=== PATIENT | male | born 1985 | race Caucasian/White ===

== ENCOUNTER 2018-08-31 17:08 | Observation (INO) | payer MEDICAID ==
[~2018-08-31] VITALS: Ht 182.9 cm; Wt 96.0 kg
[2018-08-31 17:49] LABS: BASOPHILS # (AUTO) 0.04 x10^3/uL (0-0.1); BASOPHILS % (AUTO) 0 % (0-1); EOSINOPHILS # (AUTO) 0.03 x10^3/uL (0-0.4); EOSINOPHILS % (AUTO) 0 % (1-7); LYMPHOCYTES # (AUTO) 1.04 x10^3/uL (1-3.4); LYMPHOCYTES % (AUTO) 9 % (22-44); MD NO; MEAN CORPUSCULAR HEMOGLOBIN 33.9 pg (27.5-34.5); MEAN CORPUSCULAR HGB CONC 34.5 g/dL (33.2-36.2); MEAN CORPUSCULAR VOLUME 98.1 fL (81-97); MEAN PLATELET VOLUME 9.8 fL (7.4-10.4); MONOCYTES # (AUTO) 0.74 x10^3/uL (0.2-0.8); MONOCYTES % (AUTO) 7 % (2-9); NEUTROPHILS # (AUTO) 9.25 x10^3/uL (1.8-6.8); NEUTROPHILS % (AUTO) 83 % (42-75); PLATELET COUNT 177 x10^3/uL (130-400); RED BLOOD COUNT 5.39 x10^6/uL (4.38-5.82); RED CELL DISTRIBUTION WIDTH 16.2 % (9.4-14.8)
[2018-08-31] MEDS ORDERED: LORazepam 1MG TABLET ONE (17:56)
[2018-08-31] MEDS ORDERED: LORazepam 1MG TABLET PO ONE (18:00)
[2018-08-31 18:03] LABS: ALBUMIN 3.8 g/dL (3.4-5.0); ANION GAP 10 mmol/L (5-15); CALCIUM 9.2 mg/dL (8.5-10.1); CHLORIDE 102 mmol/L (98-107)
[2018-08-31 18:05] LABS: SALICYLATE LEVEL < 1.7 mg/dL (2.8-20.0)
[2018-08-31 18:06] LABS: ACETAMINOPHEN < 2 mcg/mL (10-30); ALANINE AMINOTRANSFERASE 82 U/L (12-78); ALKALINE PHOSPHATASE 109 U/L (45-117); BILIRUBIN,TOTAL 1.6 mg/dL (0.2-1.0); CREATININE 0.98 mg/dL (0.7-1.3); TOTAL PROTEIN 8.1 g/dL (6.4-8.2)
[2018-08-31 18:14] LABS: AMPHETAMINE SCREEN, URINE Negative (Negative); BARBITURATE SCREEN, URINE Negative (Negative); BENZODIAZEPINE SCREEN, URINE Negative (Negative); CANNABINOID SCREEN, URINE Negative (Negative); COCAINE SCREEN, URINE Negative (Negative); METHADONE SCREEN, URINE Negative (Negative); OPIATE SCREEN, URINE Negative (Negative)
[2018-08-31] MEDS ORDERED: LORazepam 1MG TABLET PO PRN ×4 (22:30)
[2018-08-31] MEDS ORDERED: GABAPENTIN 300 MG CAPSULE PO PRN (22:30)
[2018-08-31] MEDS ORDERED: DOCUSATE 100 MG CAPSULE PO PRN (22:30)
[2018-08-31] MEDS ORDERED: LORazepam 2 MG/ML, 1ML IM PRN (22:30)
[2018-08-31] MEDS ORDERED: POTASSIUM CHLORIDE 20 MEQ TAB.ER.PRT PO ONE (22:30)
[2018-08-31] MEDS ORDERED: NICOTINE 7 MG/24 HR PATCH.TD24 TD SCH (22:30)
[2018-08-31] MEDS ORDERED: LORazepam 0.5MG TABLET PO PRN (22:30)
[2018-09-01] MEDS ORDERED: ERGOCALCIFEROL 50,000 UNIT CAPSULE PO SCH (07:00)
[2018-09-01] MEDS: MULTIVITAMIN 1 TABLET PO SCH (07:36)
[2018-09-01 07:51] VITALS: BP 131/99
[2018-09-01] MEDS: LORazepam 1MG TABLET PO PRN ×3 (11:03→20:35)
[2018-09-01 19:56] VITALS: BP 133/93
[2018-09-01] MEDS: NICOTINE 7 MG/24 HR PATCH.TD24 TD SCH (20:34)
[2018-09-02 08:10] VITALS: BP 122/66
[2018-09-02] MEDS: MULTIVITAMIN 1 TABLET PO SCH (08:29)
[2018-09-02] MEDS: LORazepam 1MG TABLET PO PRN ×2 (11:32→18:50)
[2018-09-02 16:28] VITALS: BP 132/94
[2018-09-02 18:41] VITALS: BP 152/96
[2018-09-02 19:29] VITALS: BP 122/86
[2018-09-02] MEDS: NICOTINE 7 MG/24 HR PATCH.TD24 TD SCH (20:15)
[2018-09-03] MEDS: LORazepam 1MG TABLET PO PRN ×3 (01:34→14:37)
[2018-09-03] MEDS: TRAZODONE 50MG TABLET PO PRN (01:37)
[2018-09-03 07:50] VITALS: BP 123/86
[2018-09-03] MEDS: MULTIVITAMIN 1 TABLET PO SCH (07:54)
[2018-09-03 14:30] VITALS: BP 122/82
[2018-09-03 19:14] VITALS: BP 131/87
[2018-09-03] MEDS: NICOTINE 7 MG/24 HR PATCH.TD24 TD SCH (20:26)
[2018-09-04 07:46] VITALS: BP 129/81
[2018-09-04] MEDS: MULTIVITAMIN 1 TABLET PO SCH (08:25)
[2018-09-04] MEDS: LORazepam 1MG TABLET PO PRN (08:55)
[2018-09-04] MEDS: NICOTINE 7 MG/24 HR PATCH.TD24 TD SCH (20:22)
[2018-09-04 20:40] VITALS: BP 124/79
[2018-09-05 05:40] LABS: ALBUMIN 3.6 g/dL (3.4-5.0); ANION GAP 4 mmol/L (5-15); CALCIUM 8.8 mg/dL (8.5-10.1); CHLORIDE 105 mmol/L (98-107)
[2018-09-05 05:44] LABS: ALANINE AMINOTRANSFERASE 128 U/L (12-78); ALKALINE PHOSPHATASE 73 U/L (45-117); BILIRUBIN,TOTAL 0.7 mg/dL (0.2-1.0); CREATININE 0.84 mg/dL (0.7-1.3); TOTAL PROTEIN 7.5 g/dL (6.4-8.2)
[2018-09-05 07:43] VITALS: BP 120/79
[2018-09-05] MEDS: MULTIVITAMIN 1 TABLET PO SCH (10:02)
[2018-09-05 20:08] VITALS: BP 123/84
[2018-09-05] MEDS: NICOTINE 7 MG/24 HR PATCH.TD24 TD SCH (20:08)
[2018-09-06] MEDS: LORazepam 0.5MG TABLET PO PRN ×2 (00:34→08:35)
[2018-09-06] MEDS: MULTIVITAMIN 1 TABLET PO SCH (08:35)
[2018-09-06 08:36] VITALS: BP 120/65
[2018-09-06 20:20] VITALS: BP 106/78
[2018-09-06] MEDS: TRAZODONE 50MG TABLET PO PRN (20:52)
[2018-09-06] MEDS: NICOTINE 7 MG/24 HR PATCH.TD24 TD SCH (20:52)
[2018-09-07 07:55] VITALS: BP 123/87
[2018-09-07] MEDS: MULTIVITAMIN 1 TABLET PO SCH (08:59)
[2018-09-08] MEDS ORDERED: ERGO2000 PO (12:47)
== END 2018-09-07 19:10 ==
LOC: ED 19:20 → INTOOBSV 19:23 → EDIP 19:23 → 2N 22:40
PROVIDERS: ADMIT Internal Medicine; ATTEND Internal Medicine
DX: F10.239 Alcohol dependence with withdrawal, unspecified (principal); R45.851 Suicidal ideations; E87.6 Hypokalemia; D75.89 Other specified diseases of blood and blood-forming organs; E55.9 Vitamin D deficiency, unspecified; F17.210 Nicotine dependence, cigarettes, uncomplicated; F43.10 Post-traumatic stress disorder, unspecified; G47.00 Insomnia, unspecified; I10 Essential (primary) hypertension; F32.9 Major depressive disorder, single episode, unspecified; Z91.5 Personal history of self-harm; Z81.8 Family history of other mental and behavioral disorders
CPT/HCPCS: 36415; 80053; 80307; 80329; 82306; 82607; 84443; 85025; 99285; G0378; G0480

== ENCOUNTER 2019-11-05 13:21 | Inpatient (IN) | payer MEDICAID, OTHER ==
[~2019-11-05] VITALS: Ht 185.4 cm; Wt 108.5 kg
[~2019-11-05 13:21] MED LIST: ERGO2000 PO
[2019-11-05] MEDS ORDERED: SODIUM CHLORIDE FLUSH 10ML SYR IVF ONE ×2 (13:30→14:30)
[2019-11-05] MEDS ORDERED: LORazepam 2 MG/ML, 1ML IVPush ONE ×2 (13:30→14:30)
[2019-11-05] MEDS ORDERED: SODIUM CHLORIDE 0.9% 1,000ML IVBOLUS ONE ×3 (13:30→15:30)
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
[2019-11-05] MEDS ORDERED: LORazepam 2 MG/ML, 1ML ONE (14:03)
[2019-11-05] MEDS ORDERED: CHLORDIAZEPOXIDE 25 MG CAPSULE PO PRN ×2 (14:30→21:00)
[2019-11-05 14:34] LABS: BASOPHILS # (AUTO) 0.07 x10^3/uL (0-0.1); BASOPHILS % (AUTO) 1 % (0-1); EOSINOPHILS # (AUTO) 0.08 x10^3/uL (0-0.4); EOSINOPHILS % (AUTO) 1 % (1-7); LYMPHOCYTES # (AUTO) 1.14 x10^3/uL (1-3.4); LYMPHOCYTES % (AUTO) 12 % (22-44); MD NO; MEAN CORPUSCULAR HEMOGLOBIN 31.2 pg (27.5-34.5); MEAN CORPUSCULAR VOLUME 94.3 fL (81-97); MEAN PLATELET VOLUME 9.5 fL (7.4-10.4); MONOCYTES # (AUTO) 0.38 x10^3/uL (0.2-0.8); MONOCYTES % (AUTO) 4 % (2-9); NEUTROPHILS # (AUTO) 7.66 x10^3/uL (1.8-6.8); NEUTROPHILS % (AUTO) 82 % (42-75); PLATELET COUNT 207 x10^3/uL (130-400); RED BLOOD COUNT 6.14 x10^6/uL (4.38-5.82); RED CELL DISTRIBUTION WIDTH 17.5 % (9.4-14.8)
[2019-11-05 14:41] LABS: ALANINE AMINOTRANSFERASE 49 U/L (12-78); ALBUMIN 3.3 g/dL (3.4-5.0); ANION GAP 6 mmol/L (5-15); CALCIUM 8.2 mg/dL (8.5-10.1); CHLORIDE 115 mmol/L (98-107); SALICYLATE LEVEL 2.2 mg/dL (2.8-20.0)
[2019-11-05 14:43] LABS: ALKALINE PHOSPHATASE 82 U/L (45-117); BILIRUBIN,TOTAL 0.5 mg/dL (0.2-1.0); CREATININE 1.09 mg/dL (0.7-1.3); TOTAL PROTEIN 7.9 g/dL (6.4-8.2)
[2019-11-05] MEDS ORDERED: CHLORDIAZEPOXIDE 25 MG CAPSULE ONE (14:50)
--- NOTE | 2019-11-05 15:27 | NUR ---
PT MEDICATED WITH ORDERED MED FOR WITHDRAWL SYMPTOMS. PT GIVEN DHEATER HOSE TO HELP HIM WARM UP. HOSPITALIST IN ROOM AT THIS TIME. SITTER AT DOOR.
[2019-11-05] MEDS ORDERED: CHLORDIAZEPOXIDE 25 MG CAPSULE PO ONE (15:30)
[2019-11-05] MEDS ORDERED: morphine SULFATE 10 MG/ML, 1ML IVPush PRN (16:00)
[2019-11-05] MEDS ORDERED: LORazepam 0.5MG TABLET PO PRN (16:00)
[2019-11-05] MEDS ORDERED: ONDANSETRON 2MG/ML, 2ML IVPush PRN (16:00)
[2019-11-05] MEDS ORDERED: IBUPROFEN 600 MG TABLET PO PRN (16:00)
[2019-11-05] MEDS ORDERED: LORazepam 1MG TABLET PO PRN ×2 (16:00)
[2019-11-05] MEDS ORDERED: hydrALAzine 20 MG/ML, 1ML IVPush PRN (16:00)
[2019-11-05] MEDS ORDERED: THIAMINE 200 MG in DEXTROSE 5% 50 ML IVPB ONE (16:00)
[2019-11-05] MEDS ORDERED: BACLOFEN 10 MG TABLET PO PRN (16:00)
[2019-11-05] MEDS ORDERED: ONDANSETRON ODT 4 MG PO PRN (16:00)
[2019-11-05] MEDS ORDERED: LORazepam 2 MG/ML, 1ML IV PRN ×5 (16:00)
[2019-11-05] MEDS ORDERED: KETOROLAC 30 MG/1 ML IV PRN (16:00)
[2019-11-05] MEDS ORDERED: FOLIC ACID 5 MG/ML IM ONE (16:00)
--- NOTE | 2019-11-05 16:41 | NUR ---
2ND BAG OF ORDERED FLUIDS HUNG. PT RESTING CALMLY IN BED WITH EYES CLOSED. PT RESTING WITH FACE ON GURNEY. PT O2 SAT 87% ON RA. PT WAS PLACED ON O2 AT 2L PER N/C. PT O2 SAT IMPROVED TO 92% WHILE RESTING WIH EYES CLOSED.
--- NOTE | 2019-11-05 17:41 | NUR ---
PT RESTING CALMLY IN BED. NO STATED NEED AT THIS TIME, PT RESTING WITH EYES CLOSED. SITTER AT DOOR.
--- NOTE | 2019-11-05 18:07 | NUR ---
REPORT TO GEORGE ARANA.
[2019-11-05] MEDS: D5%-0.45NACL+KCL 20MEQ 1,000 ML IV SCH (20:13)
[2019-11-05] MEDS: ENOXAPARIN 40 MG/0.4 ML SQ SCH (20:15)
[2019-11-05 20:31] VITALS: BP 152/92
[2019-11-05 21:38] LABS: AMPHETAMINE SCREEN, URINE Negative (Negative); BARBITURATE SCREEN, URINE Negative (Negative); BENZODIAZEPINE SCREEN, URINE Positive (Negative); CANNABINOID SCREEN, URINE Negative (Negative); COCAINE SCREEN, URINE Negative (Negative); METHADONE SCREEN, URINE Negative (Negative); OPIATE SCREEN, URINE Negative (Negative)
[2019-11-06 03:28] VITALS: BP 138/98
[2019-11-06] MEDS: LORazepam 1MG TABLET PO PRN ×3 (03:45→21:23)
[2019-11-06] MEDS: D5%-0.45NACL+KCL 20MEQ 1,000 ML IV SCH (04:07)
[2019-11-06 06:08] LABS: BASOPHILS # (AUTO) 0.05 x10^3/uL (0-0.1); BASOPHILS % (AUTO) 1 % (0-1); EOSINOPHILS # (AUTO) 0.18 x10^3/uL (0-0.4); EOSINOPHILS % (AUTO) 2 % (1-7); LYMPHOCYTES # (AUTO) 1.33 x10^3/uL (1-3.4); LYMPHOCYTES % (AUTO) 16 % (22-44); MD NO; MEAN CORPUSCULAR HEMOGLOBIN 31.8 pg (27.5-34.5); MEAN CORPUSCULAR HGB CONC 33.7 g/dL (33.2-36.2); MEAN CORPUSCULAR VOLUME 94.6 fL (81-97); MEAN PLATELET VOLUME 9.6 fL (7.4-10.4); MONOCYTES # (AUTO) 0.69 x10^3/uL (0.2-0.8); MONOCYTES % (AUTO) 8 % (2-9); NEUTROPHILS # (AUTO) 6.31 x10^3/uL (1.8-6.8); NEUTROPHILS % (AUTO) 74 % (42-75); PLATELET COUNT 165 x10^3/uL (130-400); RED CELL DISTRIBUTION WIDTH 17.2 % (9.4-14.8)
[2019-11-06 06:16] LABS: ALBUMIN 3.1 g/dL (3.4-5.0); ANION GAP 6 mmol/L (5-15); CALCIUM 8.3 mg/dL (8.5-10.1); CHLORIDE 111 mmol/L (98-107)
[2019-11-06 06:24] LABS: ALANINE AMINOTRANSFERASE 37 U/L (12-78); ALKALINE PHOSPHATASE 65 U/L (45-117); BILIRUBIN,TOTAL 1.3 mg/dL (0.2-1.0); CREATININE 0.84 mg/dL (0.7-1.3); TOTAL PROTEIN 6.6 g/dL (6.4-8.2)
[2019-11-06 07:12] VITALS: BP 143/99
[2019-11-06] MEDS ORDERED: MAGNESIUM SULFATE PMX 2GM/50ML 50 ML IV ONE (08:00)
[2019-11-06] MEDS: MULTIVITAMINS/MINERALS TABLET PO SCH (08:32)
[2019-11-06] MEDS: NEUTRA PHOS K 250 MG TABLET PO SCH ×3 (08:32→21:23)
[2019-11-06] MEDS: POTASSIUM CHLORIDE 20 MEQ, MAGNESIUM SULFATE 1 GM, FOLIC ACID 1 MG, THIAMINE 200 MG, MV... IV SCH (11:49)
[2019-11-06 13:02] VITALS: BP 126/87
[2019-11-06 18:43] VITALS: BP 119/80
[2019-11-06] MEDS: ENOXAPARIN 40 MG/0.4 ML SQ SCH (21:23)
[2019-11-07 02:33] VITALS: BP 129/85
[2019-11-07 06:02] LABS: ALBUMIN 3.1 g/dL (3.4-5.0); ANION GAP 5 mmol/L (5-15); CALCIUM 8.4 mg/dL (8.5-10.1); CHLORIDE 110 mmol/L (98-107)
[2019-11-07 06:03] LABS: BASOPHILS # (AUTO) 0.02 x10^3/uL (0-0.1); BASOPHILS % (AUTO) 0 % (0-1); EOSINOPHILS # (AUTO) 0.24 x10^3/uL (0-0.4); EOSINOPHILS % (AUTO) 4 % (1-7); LYMPHOCYTES # (AUTO) 1.38 x10^3/uL (1-3.4); LYMPHOCYTES % (AUTO) 21 % (22-44); MD NO; MEAN CORPUSCULAR HEMOGLOBIN 31.6 pg (27.5-34.5); MEAN CORPUSCULAR HGB CONC 33.6 g/dL (33.2-36.2); MEAN CORPUSCULAR VOLUME 94.1 fL (81-97); MONOCYTES % (AUTO) 10 % (2-9); NEUTROPHILS # (AUTO) 4.38 x10^3/uL (1.8-6.8); NEUTROPHILS % (AUTO) 65 % (42-75); PLATELET COUNT 169 x10^3/uL (130-400); RED BLOOD COUNT 5.29 x10^6/uL (4.38-5.82); RED CELL DISTRIBUTION WIDTH 16.8 % (9.4-14.8)
[2019-11-07 06:07] LABS: ALANINE AMINOTRANSFERASE 28 U/L (12-78); ALKALINE PHOSPHATASE 76 U/L (45-117); BILIRUBIN,TOTAL 1.4 mg/dL (0.2-1.0); CREATININE 0.81 mg/dL (0.7-1.3); TOTAL PROTEIN 6.7 g/dL (6.4-8.2)
[2019-11-07 07:19] VITALS: BP 151/70
[2019-11-07] MEDS: NEUTRA PHOS K 250 MG TABLET PO SCH ×3 (09:24→20:56)
[2019-11-07] MEDS: MULTIVITAMINS/MINERALS TABLET PO SCH (09:24)
[2019-11-07] MEDS: POTASSIUM CHLORIDE 20 MEQ, MAGNESIUM SULFATE 1 GM, FOLIC ACID 1 MG, THIAMINE 200 MG, MV... IV SCH (10:34)
[2019-11-07] MEDS: LORazepam 1MG TABLET PO PRN (10:35)
[2019-11-07 12:08] VITALS: BP 138/82
[2019-11-07 18:27] VITALS: BP 130/84
[2019-11-07] MEDS: ENOXAPARIN 40 MG/0.4 ML SQ SCH (20:56)
[2019-11-08 00:55] VITALS: BP 132/91
[2019-11-08 06:07] LABS: ALANINE AMINOTRANSFERASE 32 U/L (12-78); ALBUMIN 3.1 g/dL (3.4-5.0); ANION GAP 5 mmol/L (5-15); CALCIUM 8.4 mg/dL (8.5-10.1); CHLORIDE 109 mmol/L (98-107); CREATININE 0.82 mg/dL (0.7-1.3)
[2019-11-08 06:10] LABS: ALKALINE PHOSPHATASE 71 U/L (45-117); BILIRUBIN,TOTAL 1.6 mg/dL (0.2-1.0); TOTAL PROTEIN 6.7 g/dL (6.4-8.2)
[2019-11-08] MEDS ORDERED: POTASSIUM CHLORIDE 10% 40 MEQ/30 ML UDC PO ONE (09:00)
[2019-11-08] MEDS: NEUTRA PHOS K 250 MG TABLET PO SCH ×3 (09:46→21:20)
[2019-11-08] MEDS: MULTIVITAMINS/MINERALS TABLET PO SCH (09:46)
[2019-11-08 10:26] VITALS: BP 138/86
[2019-11-08] MEDS: POTASSIUM CHLORIDE 20 MEQ, MAGNESIUM SULFATE 1 GM, FOLIC ACID 1 MG, THIAMINE 200 MG, MV... IV SCH (11:01)
[2019-11-08 19:12] VITALS: BP 150/103
[2019-11-08] MEDS: ENOXAPARIN 40 MG/0.4 ML SQ SCH (21:20)
[2019-11-08 21:24] VITALS: BP 146/101
[2019-11-08 21:58] VITALS: BP 148/95
[2019-11-09 00:56] VITALS: BP 147/88
[2019-11-09] MEDS: ACETAMINOPHEN 325 MG TABLET PO PRN ×2 (01:37→08:32)
[2019-11-09 06:55] VITALS: BP 129/88
[2019-11-09 07:19] LABS: ALBUMIN 3.3 g/dL (3.4-5.0); ANION GAP 4 mmol/L (5-15); CALCIUM 8.9 mg/dL (8.5-10.1); CHLORIDE 111 mmol/L (98-107)
[2019-11-09 07:23] LABS: ALANINE AMINOTRANSFERASE 50 U/L (12-78); ALKALINE PHOSPHATASE 75 U/L (45-117); BILIRUBIN,TOTAL 1.1 mg/dL (0.2-1.0); CREATININE 0.81 mg/dL (0.7-1.3); TOTAL PROTEIN 7.2 g/dL (6.4-8.2)
[2019-11-09] MEDS: NEUTRA PHOS K 250 MG TABLET PO SCH ×3 (08:28→20:47)
[2019-11-09] MEDS: MULTIVITAMINS/MINERALS TABLET PO SCH (08:28)
[2019-11-09] MEDS ORDERED: PHOS250T3 PO (10:55)
[2019-11-09] MEDS ORDERED: MULT-484 PO (10:55)
[2019-11-09] MEDS ORDERED: MAGN400T26 PO (10:56)
[2019-11-09] MEDS: POTASSIUM CHLORIDE 20 MEQ, MAGNESIUM SULFATE 1 GM, FOLIC ACID 1 MG, THIAMINE 200 MG, MV... IV SCH (12:38)
[2019-11-09 13:42] VITALS: BP 131/90
[2019-11-09 18:38] VITALS: BP 138/95
[2019-11-09] MEDS: ENOXAPARIN 40 MG/0.4 ML SQ SCH (20:48)
[2019-11-10 02:05] VITALS: BP 125/88
[2019-11-10 08:10] VITALS: BP 135/91
[2019-11-10] MEDS: NEUTRA PHOS K 250 MG TABLET PO SCH (09:01)
[2019-11-10] MEDS: MULTIVITAMINS/MINERALS TABLET PO SCH (09:01)
[2019-11-10] MEDS: POTASSIUM CHLORIDE 20 MEQ, MAGNESIUM SULFATE 1 GM, FOLIC ACID 1 MG, THIAMINE 200 MG, MV... IV SCH (13:14)
[2019-11-10 13:40] VITALS: BP 125/80
[2019-11-10 20:00] VITALS: BP 136/92
[2019-11-10] MEDS: ENOXAPARIN 40 MG/0.4 ML SQ SCH (21:15)
[2019-11-11 01:35] VITALS: BP 120/80
[2019-11-11 07:50] VITALS: BP 110/75
[2019-11-11] MEDS: MULTIVITAMINS/MINERALS TABLET PO SCH (09:03)
[2019-11-11 12:16] VITALS: BP 123/86
[2019-11-11] MEDS ORDERED: TRAZODONE 50MG TABLET PO PRN (17:30)
[2019-11-11 19:39] VITALS: BP 113/77
[2019-11-11] MEDS: ENOXAPARIN 40 MG/0.4 ML SQ SCH (21:29)
[2019-11-12 00:41] VITALS: BP 129/89
[2019-11-12 06:59] VITALS: BP 109/72
[2019-11-12] MEDS: SERTRALINE 50MG TABLET PO SCH (08:38)
[2019-11-12] MEDS: MULTIVITAMINS/MINERALS TABLET PO SCH (08:38)
[2019-11-12 13:08] VITALS: BP 115/79
[2019-11-12] MEDS: ENOXAPARIN 40 MG/0.4 ML SQ SCH (20:16)
[2019-11-12 21:00] VITALS: BP 119/77
[2019-11-13 00:52] VITALS: BP 123/81
[2019-11-13 07:59] VITALS: BP 111/77
[2019-11-13] MEDS: MULTIVITAMINS/MINERALS TABLET PO SCH (08:30)
[2019-11-13] MEDS: SERTRALINE 50MG TABLET PO SCH (08:30)
[2019-11-13 12:06] VITALS: BP 118/78
[2019-11-13 18:43] VITALS: BP 133/88
[2019-11-13] MEDS: ENOXAPARIN 40 MG/0.4 ML SQ SCH (20:16)
[2019-11-14 00:30] VITALS: BP 116/81
[2019-11-14 08:20] VITALS: BP 115/78
[2019-11-14] MEDS: SERTRALINE 50MG TABLET PO SCH (09:55)
[2019-11-14] MEDS: MULTIVITAMINS/MINERALS TABLET PO SCH (09:55)
[2019-11-14 12:44] VITALS: BP 126/76
[2019-11-14 19:33] VITALS: BP 111/79
[2019-11-14] MEDS: ENOXAPARIN 40 MG/0.4 ML SQ SCH (20:16)
[2019-11-15 01:52] VITALS: BP 107/71
[2019-11-15 09:55] VITALS: BP 117/71
[2019-11-15] MEDS: MULTIVITAMINS/MINERALS TABLET PO SCH (10:04)
[2019-11-15] MEDS: SERTRALINE 50MG TABLET PO SCH (10:04)
[2019-11-15 13:20] VITALS: BP 130/84
[2019-11-15 20:22] VITALS: BP 132/90
[2019-11-15] MEDS: ENOXAPARIN 40 MG/0.4 ML SQ SCH (20:31)
[2019-11-16 03:00] VITALS: BP 118/81
[2019-11-16] MEDS: SERTRALINE 50MG TABLET PO SCH (08:19)
[2019-11-16] MEDS: MULTIVITAMINS/MINERALS TABLET PO SCH (08:19)
[2019-11-16 09:02] VITALS: BP 126/87
[2019-11-16 13:37] VITALS: BP 122/85
[2019-11-16] MEDS ORDERED: NICOTINE 14MG/24 HR PATCH.TD24 TD SCH (14:00)
[2019-11-16] MEDS ORDERED: SERT50TA PO (16:11)
== END 2019-11-16 16:45 | disposition home or self-care (01) | DRG 885 ==
LOC: ED 13:22 → EDIP 15:31 → 4WST 18:11 → 3N 11-12 17:57
PROVIDERS: ADMIT Hospitalist; ATTEND Internal Medicine
DX: F33.2 Major depressive disorder, recurrent severe without psychotic features (principal); F10.24 Alcohol dependence with alcohol-induced mood disorder; R45.851 Suicidal ideations; F10.230 Alcohol dependence with withdrawal, uncomplicated; J45.909 Unspecified asthma, uncomplicated; E87.6 Hypokalemia; E86.0 Dehydration; E83.42 Hypomagnesemia; E83.39 Other disorders of phosphorus metabolism; D75.1 Secondary polycythemia; I10 Essential (primary) hypertension; F17.210 Nicotine dependence, cigarettes, uncomplicated; R00.0 Tachycardia, unspecified; K70.9 Alcoholic liver disease, unspecified; Z79.899 Other long term (current) drug therapy; Z91.5 Personal history of self-harm
CPT/HCPCS: 36415; 96361; 96372; 96374; 99285; J7042; 80053; 80307; 83735; 84100; 85025; 93005; G0378; J1650; J3411; J3475; J3480; J0360; J2060; J7030

== ENCOUNTER 2019-11-16 14:50 | Inpatient (IN) | payer MEDICAID ==
[~2019-11-16] VITALS: Ht 185.4 cm; Wt 103.4 kg
[~2019-11-16 14:50] MED LIST changes: +MAGN400T26 PO; +MULT-484 PO; +PHOS250T3 PO
[2019-11-16] MEDS ORDERED: ONDANSETRON ODT 4 MG PO PRN (15:00)
[2019-11-16] MEDS ORDERED: ACETAMINOPHEN 325 MG TABLET PO PRN (15:00)
[2019-11-16] MEDS ORDERED: DOCUSATE 100 MG CAPSULE PO PRN (15:00)
[2019-11-16] MEDS ORDERED: POLYETHYLENE GLYCOL 17 GM PACKET PO PRN (15:00)
[2019-11-16] MEDS ORDERED: BISACODYL 10 MG SUPP PR PRN (15:00)
[2019-11-16] MEDS ORDERED: TRAZODONE 50MG TABLET PO PRN (15:30)
[2019-11-16] MEDS ORDERED: PLEASE ENTER HEIGHT AND WEIGHT MC SCH (16:00)
[2019-11-16] MEDS ORDERED: SERT50TA PO (16:11)
[2019-11-16 16:13] VITALS: BP 137/90
[2019-11-16] MEDS ORDERED: FLU VACC QS2019-20 36MOS UP/PF 0.5 ML IM-VACC ONE (17:30)
[2019-11-16 19:45] VITALS: BP 129/85
[2019-11-17 05:44] LABS: CHOL/HDL RATIO 4.4; LDL/HDL RATIO 2.7 (0.5-3.0)
[2019-11-17 07:19] VITALS: BP 115/80
[2019-11-17] MEDS ORDERED: SERTRALINE 100MG TABLET ONE (08:41)
[2019-11-17] MEDS ORDERED: THIAMINE 100MG TABLET PO SCH (09:00)
[2019-11-17] MEDS ORDERED: NICOTINE 14MG/24 HR PATCH.TD24 TD SCH (09:00)
[2019-11-17] MEDS ORDERED: MULTIVITAMIN 1 TABLET PO SCH (09:00)
[2019-11-17] MEDS ORDERED: SERTRALINE 50MG TABLET PO SCH (09:00)
[2019-11-17] MEDS ORDERED: FOLIC ACID 1 MG TABLET PO SCH (09:00)
[2019-11-17] MEDS: ACAMPROSATE 333 MG TABLET.DR PO SCH ×3 (12:57→20:31)
[2019-11-17] MEDS ORDERED: ACAMPROSATE 333 MG TABLET.DR ONE (16:38)
[2019-11-17 19:11] VITALS: BP 129/79
[2019-11-17 19:21] VITALS: BP 115/75
[2019-11-18 07:37] VITALS: BP 101/65
[2019-11-18] MEDS: FOLIC ACID 1 MG TABLET PO SCH (08:58)
[2019-11-18] MEDS: NICOTINE 14MG/24 HR PATCH.TD24 TD SCH (08:58)
[2019-11-18] MEDS: ACAMPROSATE 333 MG TABLET.DR PO SCH ×3 (08:58→21:18)
[2019-11-18] MEDS: MULTIVITAMIN 1 TABLET PO SCH (08:58)
[2019-11-18] MEDS: THIAMINE 100MG TABLET PO SCH (08:58)
[2019-11-18] MEDS: SERTRALINE 50MG TABLET PO SCH (08:58)
[2019-11-18 19:36] VITALS: BP 138/84
[2019-11-19 07:21] VITALS: BP 116/73
[2019-11-19] MEDS: SERTRALINE 50MG TABLET PO SCH (08:31)
[2019-11-19] MEDS: FOLIC ACID 1 MG TABLET PO SCH (08:31)
[2019-11-19] MEDS: NICOTINE 14MG/24 HR PATCH.TD24 TD SCH (08:31)
[2019-11-19] MEDS: ACAMPROSATE 333 MG TABLET.DR PO SCH ×3 (08:31→20:22)
[2019-11-19] MEDS: MULTIVITAMIN 1 TABLET PO SCH (08:31)
[2019-11-19] MEDS: THIAMINE 100MG TABLET PO SCH (08:31)
[2019-11-19 19:52] VITALS: BP 150/87
[2019-11-20 07:31] VITALS: BP 112/75
[2019-11-20] MEDS: MULTIVITAMIN 1 TABLET PO SCH (08:23)
[2019-11-20] MEDS: ACAMPROSATE 333 MG TABLET.DR PO SCH ×3 (08:23→20:38)
[2019-11-20] MEDS: NICOTINE 14MG/24 HR PATCH.TD24 TD SCH (08:23)
[2019-11-20] MEDS: SERTRALINE 50MG TABLET PO SCH (08:23)
[2019-11-20] MEDS: THIAMINE 100MG TABLET PO SCH (08:23)
[2019-11-20] MEDS: FOLIC ACID 1 MG TABLET PO SCH (08:23)
[2019-11-20] MEDS ORDERED: ACETAMINOPHEN 325 MG TABLET ONE (16:03)
[2019-11-20] MEDS ORDERED: MULT1TAB60 PO (16:04)
[2019-11-20] MEDS ORDERED: NICO-486 TD (16:04)
[2019-11-20] MEDS ORDERED: SERT50TA28 PO (16:04)
[2019-11-20] MEDS ORDERED: ACAM333T7 PO (16:04)
[2019-11-20] MEDS ORDERED: ACETAMINOPHEN 325 MG TABLET PO PRN (16:30)
[2019-11-20 19:15] VITALS: BP_SYST 142; BP_SYST 98; BP_DIAS 59; BP_DIAS 83
[2019-11-21 07:38] VITALS: BP 120/81
[2019-11-21 07:48] VITALS: BP 129/88
[2019-11-21] MEDS: MULTIVITAMIN 1 TABLET PO SCH (08:52)
[2019-11-21] MEDS: FOLIC ACID 1 MG TABLET PO SCH (08:52)
[2019-11-21] MEDS: SERTRALINE 50MG TABLET PO SCH (08:52)
[2019-11-21] MEDS: THIAMINE 100MG TABLET PO SCH (08:52)
[2019-11-21] MEDS: ACAMPROSATE 333 MG TABLET.DR PO SCH (08:53)
[2019-11-21] MEDS: NICOTINE 14MG/24 HR PATCH.TD24 TD SCH (08:53)
== END 2019-11-21 10:08 | disposition home or self-care (01) | DRG 885 ==
LOC: 3E 15:36 → UNDODISIN 15:40
PROVIDERS: ADMIT Psychiatry & Neurology Psychosomatic Medicine; ATTEND Psychiatry & Neurology Psychosomatic Medicine
DX: F33.2 Major depressive disorder, recurrent severe without psychotic features (principal); R45.851 Suicidal ideations; E87.6 Hypokalemia; F10.229 Alcohol dependence with intoxication, unspecified; I10 Essential (primary) hypertension; Z72.0 Tobacco use; Z79.899 Other long term (current) drug therapy; Z91.5 Personal history of self-harm
CPT/HCPCS: 36415; 71045; 80061; 90686

== ENCOUNTER 2020-02-25 04:23 | Emergency (ER) | payer MEDICAID ==
[~2020-02-25] VITALS: Ht 185.4 cm; Wt 113.5 kg
[~2020-02-25 04:23] MED LIST changes: +ACAM333T7 PO; +MULT1TAB60 PO; +NICO-486 TD; +SERT50TA PO; +SERT50TA28 PO
[2020-02-25] MEDS ORDERED: LORazepam 1MG TABLET PO ONE (04:30)
[2020-02-25] MEDS ORDERED: NICOTINE 14MG/24 HR PATCH.TD24 TD ONE (04:30)
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
[2020-02-25] MEDS ORDERED: NICOTINE 21 MG/24 HR PATCH.TD24 ONE (04:39)
[2020-02-25] MEDS ORDERED: LORazepam 1MG TABLET ONE (04:39)
[2020-02-25] MEDS ORDERED: NICOTINE 14MG/24 HR PATCH.TD24 ONE (04:42)
[2020-02-25 05:11] LABS: AMPHETAMINE SCREEN, URINE Negative (Negative); BARBITURATE SCREEN, URINE Negative (Negative); BENZODIAZEPINE SCREEN, URINE Negative (Negative); CANNABINOID SCREEN, URINE Negative (Negative); COCAINE SCREEN, URINE Negative (Negative); METHADONE SCREEN, URINE Negative (Negative); OPIATE SCREEN, URINE Negative (Negative)
[2020-02-25 05:15] LABS: BASOPHILS # (AUTO) 0.08 x10^3/uL (0-0.1); BASOPHILS % (AUTO) 1 % (0-1); EOSINOPHILS # (AUTO) 0.05 x10^3/uL (0-0.4); EOSINOPHILS % (AUTO) 1 % (1-7); LYMPHOCYTES # (AUTO) 2.59 x10^3/uL (1-3.4); LYMPHOCYTES % (AUTO) 27 % (22-44); MD NO; MEAN CORPUSCULAR HEMOGLOBIN 31.7 pg (27.5-34.5); MEAN CORPUSCULAR HGB CONC 33.2 g/dL (33.2-36.2); MEAN CORPUSCULAR VOLUME 95.4 fL (81-97); MEAN PLATELET VOLUME 9.4 fL (7.4-10.4); MONOCYTES # (AUTO) 0.33 x10^3/uL (0.2-0.8); MONOCYTES % (AUTO) 4 % (2-9); NEUTROPHILS # (AUTO) 6.44 x10^3/uL (1.8-6.8); NEUTROPHILS % (AUTO) 68 % (42-75); PLATELET COUNT 243 x10^3/uL (130-400); RED BLOOD COUNT 6.23 x10^6/uL (4.38-5.82); RED CELL DISTRIBUTION WIDTH 13.8 % (9.4-14.8)
[2020-02-25 05:28] LABS: ALBUMIN 3.9 g/dL (3.4-5.0); ANION GAP 10 mmol/L (5-15); CALCIUM 8.8 mg/dL (8.5-10.1); CHLORIDE 106 mmol/L (98-107); SALICYLATE LEVEL 1.8 mg/dL (2.8-20.0)
[2020-02-25 05:41] LABS: ALANINE AMINOTRANSFERASE 30 U/L (12-78); ALKALINE PHOSPHATASE 95 U/L (45-117); BILIRUBIN,TOTAL 0.7 mg/dL (0.2-1.0); CREATININE 1.34 mg/dL (0.7-1.3); TOTAL PROTEIN 8.6 g/dL (6.4-8.2)
--- NOTE | 2020-02-25 06:33 | NUR ---
PT REQUESTING PANTS. INSTRUCTED THAT WE DO NOT HAVE PAPER SCRUBS. INSTRUCTED PATIENT TO PUT HIS GOWN BACK ON. PT. COOPERATIVE.
--- NOTE | 2020-02-25 07:11 | NUR ---
REPORT GIVEN TO ROGERS ARANA.
--- NOTE | 2020-02-25 07:51 | NUR ---
REPORT RECEIVED FROM YASMEEN STAUFFER. PT LAYING IN BED, RESPIRATIONS EVEN AND UNLABORED, IN VIEW OF THE SITTER. WILL CONTINUE TO MONITOR.
--- NOTE | 2020-02-25 08:34 | NUR ---
TASK RN NOTE: PT ASLEEP IN BED, NAD NOTE AT THIS TIME. SITTER OUTSIDE OF ROOM FOR DIRECT OBSERVATION AND Q15 MIN SAFETY CHECKS.
--- NOTE | 2020-02-25 08:55 | NUR ---
PT AMBULATORY TO BATHROOM X2, REMAINS IN VIEW OF THE SITTER, NO SIGNS OF DISTRESS. WILL CONTINUE TO MONITOR.
--- NOTE | 2020-02-25 09:39 | NUR ---
PT PROVIDED WATER, STATED "I KNOW I'M DEHYDRATED, ALL I'VE BEEN DRINKING IS LIQUOR." NO SIGNS OF DISTRESS, REMAINS IN VIEW OF THE SITTER.
--- NOTE | 2020-02-25 10:36 | NUR ---
PT LAYING ON SIDE, RESPIRATIONS EVEN AND UNLABORED, EYE CLOSED, LIGHTS OFF TO PROMOTE REST.
--- NOTE | 2020-02-25 10:59 | NUR ---
PT LAYING ON SIGN, STATING HE FEELS HE'S GOING TO BE SICK. BARF BAG AT BEDSIDE. REMAINS IN VIEW OF THE SITTER.
[2020-02-25] MEDS ORDERED: LORazepam 2 MG/ML, 1ML ONE (11:13)
[2020-02-25] MEDS: LORazepam 2 MG/ML, 1ML IVPush PRN ×2 (11:15→12:53)
[2020-02-25 11:25] LABS: BASOPHILS # (AUTO) 0.03 x10^3/uL (0-0.1); BASOPHILS % (AUTO) 0 % (0-1); EOSINOPHILS # (AUTO) 0.08 x10^3/uL (0-0.4); EOSINOPHILS % (AUTO) 1 % (1-7); LYMPHOCYTES # (AUTO) 2.28 x10^3/uL (1-3.4); LYMPHOCYTES % (AUTO) 26 % (22-44); MD NO; MEAN CORPUSCULAR HEMOGLOBIN 31.6 pg (27.5-34.5); MEAN CORPUSCULAR HGB CONC 33.6 g/dL (33.2-36.2); MEAN CORPUSCULAR VOLUME 94.1 fL (81-97); MEAN PLATELET VOLUME 10.1 fL (7.4-10.4); MONOCYTES # (AUTO) 0.48 x10^3/uL (0.2-0.8); MONOCYTES % (AUTO) 5 % (2-9); NEUTROPHILS # (AUTO) 6.07 x10^3/uL (1.8-6.8); NEUTROPHILS % (AUTO) 68 % (42-75); PLATELET COUNT 240 x10^3/uL (130-400); RED BLOOD COUNT 5.73 x10^6/uL (4.38-5.82); RED CELL DISTRIBUTION WIDTH 14.2 % (9.4-14.8)
[2020-02-25] MEDS ORDERED: SODIUM CHLORIDE 0.9% 1,000ML IVBOLUS ONE (11:30)
[2020-02-25] MEDS ORDERED: SODIUM CHLORIDE FLUSH 10ML SYR IVF ONE (11:30)
[2020-02-25 11:40] LABS: ANION GAP 14 mmol/L (5-15); CALCIUM 8.4 mg/dL (8.5-10.1); CHLORIDE 105 mmol/L (98-107); CREATININE 1.01 mg/dL (0.7-1.3)
--- NOTE | 2020-02-25 11:40 | NUR ---
PT SITTING IN BED, AFTER AMBULATING TO THE BATHROOM, PT STATES HE THREW UP, PROVIDED SPRITE AND WATER. REMAINS IN VIEW OF SITTER.
[2020-02-25 11:41] LABS: ALBUMIN 3.4 g/dL (3.4-5.0)
[2020-02-25 11:46] LABS: TROPONIN I < 0.015 ng/mL (0.000-0.045)
--- NOTE | 2020-02-25 12:14 | NUR ---
ASSIST RN:: PT NOW BELOW LEGAL LIMIT ON BREATHYLIZER. PT STATING HE "FEELS LIKE SHIT, HE WANTS TO END HIS LIFE DUE TO BEING AN ALCOHOLIC". PSYCH BIOINFORMATICS TECHNICIAN COMING TO SEE PT.
--- NOTE | 2020-02-25 12:17 | NUR ---
PT LAYING IN BED, NO SIGNS OF DISTRESS, REMAINS IN VIEW OF SITTER.
--- NOTE | 2020-02-25 12:34 | NUR ---
LUBE ATTENDANT TO BEDSIDE.
--- NOTE | 2020-02-25 12:36 | NUR ---
PT TO BE PLACED ON LEGAL 2000 PER BANKRUPTCY LAW SPECIALIST.
[2020-02-25] MEDS ORDERED: LISI-167 PO (13:00)
--- NOTE | 2020-02-25 13:50 | NUR ---
PT LAYING IN BED, VSS, RESPIRATIONS EVEN AND UNLABORED, REMAINS IN SIGHT OF SITTER.
--- NOTE | 2020-02-25 14:26 | NUR ---
PT LAYING ON SIDE, RESPIRATIONS EVEN AND UNLABORED, PT REMAINS IN VIEW OF THE SITTER.
[2020-02-25 15:46] VITALS: BP 121/84
--- NOTE | 2020-02-25 15:47 | NUR ---
PT REMAINS LAYING IN BED, RESPIRATIONS EVEN AND UNLABORED, EYES CLOSED, EASILY AWOKEN WHEN YOU SAY HIS NAME. PT DENIES COMPLAINTS, PT STATES HE'S COLD, EVIDENCE OF SWEATING ON BED.
--- NOTE | 2020-02-25 15:50 | NUR ---
REPORT TO YASMEEN Humphrey.
--- NOTE | 2020-02-25 15:58 | NUR ---
PT AMBULATORY TO BATHROOM. STEADY GAIT.
[2020-02-26] MEDS ORDERED: THIAMINE 100MG TABLET PO ONE (10:30)
[2020-02-27] MEDS ORDERED: MULTIVITAMIN 1 TABLET PO SCH (09:00)
[2020-02-27] MEDS ORDERED: LISINOPRIL 10 MG TABLET PO SCH (09:00)
[2020-02-27] MEDS ORDERED: FOLIC ACID 1 MG TABLET PO SCH (09:00)
[2020-02-27] MEDS ORDERED: MAGNESIUM OXIDE 400 MG TABLET PO SCH (09:00)
== END 2020-02-25 16:23 ==
LOC: ED 04:45
DX: F19.14 Other psychoactive substance abuse with psychoactive substance-induced mood disorder (principal); F10.129 Alcohol abuse with intoxication, unspecified; R45.851 Suicidal ideations; I10 Essential (primary) hypertension; Y90.9 Presence of alcohol in blood, level not specified
CPT/HCPCS: 36415; 80048; 80053; 80307; 82040; 84484; 85025; 96374; 96376; 99285; J2060; J7030

== ENCOUNTER 2020-02-25 14:26 | Inpatient (IN) | payer MEDICAID ==
[~2020-02-25] VITALS: Ht 185.4 cm; Wt 106.5 kg
[~2020-02-25 14:26] MED LIST changes: +LISI-167 PO
[2020-02-25] MEDS ORDERED: POLYETHYLENE GLYCOL 17 GM PACKET PO PRN (16:00)
[2020-02-25] MEDS ORDERED: DOCUSATE 100 MG CAPSULE PO PRN (16:00)
[2020-02-25] MEDS ORDERED: ACETAMINOPHEN 325 MG TABLET PO PRN (16:00)
[2020-02-25 16:32] VITALS: BP 124/94
[2020-02-25 17:17] VITALS: BP 124/94
[2020-02-25 19:15] VITALS: BP 128/88
[2020-02-25] MEDS: LORazepam 1MG TABLET PO SCH (20:50)
[2020-02-25] MEDS: NICOTINE 14MG/24 HR PATCH.TD24 TD SCH (20:50)
[2020-02-26] MEDS: LORazepam 1MG TABLET PO SCH ×4 (03:00→20:47)
[2020-02-26 06:48] LABS: CHOL/HDL RATIO 4.3; LDL/HDL RATIO 2.7 (0.5-3.0)
[2020-02-26 07:35] VITALS: BP 124/75
[2020-02-26] MEDS: LISINOPRIL 10 MG TABLET PO SCH (08:42)
[2020-02-26] MEDS: MULTIVITAMIN 1 TABLET PO SCH (08:42)
[2020-02-26] MEDS: SERTRALINE 50MG TABLET PO SCH (08:42)
[2020-02-26] MEDS: ACAMPROSATE 333 MG TABLET.DR PO SCH ×3 (08:42→20:47)
[2020-02-26] MEDS: MAGNESIUM OXIDE 400 MG TABLET PO SCH ×2 (08:42→20:47)
[2020-02-26] MEDS: NEUTRA PHOS K 250 MG TABLET PO SCH ×3 (08:42→20:47)
[2020-02-26 19:15] VITALS: BP 142/81
[2020-02-26] MEDS: NICOTINE 14MG/24 HR PATCH.TD24 TD SCH (20:48)
[2020-02-27 07:50] VITALS: BP 119/79
[2020-02-27] MEDS: MAGNESIUM OXIDE 400 MG TABLET PO SCH ×2 (08:43→20:48)
[2020-02-27] MEDS: MULTIVITAMIN 1 TABLET PO SCH (08:43)
[2020-02-27] MEDS: NEUTRA PHOS K 250 MG TABLET PO SCH ×3 (08:43→20:48)
[2020-02-27] MEDS: ACAMPROSATE 333 MG TABLET.DR PO SCH ×3 (08:43→20:49)
[2020-02-27] MEDS: LISINOPRIL 10 MG TABLET PO SCH (08:43)
[2020-02-27] MEDS: SERTRALINE 50MG TABLET PO SCH (08:43)
[2020-02-27 09:13] LABS: ALBUMIN 3.5 g/dL (3.4-5.0); ANION GAP 4 mmol/L (5-15); CHLORIDE 107 mmol/L (98-107)
[2020-02-27 09:15] LABS: BASOPHILS # (AUTO) 0.03 x10^3/uL (0-0.1); BASOPHILS % (AUTO) 0 % (0-1); EOSINOPHILS # (AUTO) 0.19 x10^3/uL (0-0.4); EOSINOPHILS % (AUTO) 2 % (1-7); LYMPHOCYTES # (AUTO) 1.62 x10^3/uL (1-3.4); LYMPHOCYTES % (AUTO) 19 % (22-44); MD NO; MEAN CORPUSCULAR HEMOGLOBIN 32.4 pg (27.5-34.5); MEAN CORPUSCULAR VOLUME 95.2 fL (81-97); MEAN PLATELET VOLUME 9.9 fL (7.4-10.4); MONOCYTES # (AUTO) 0.55 x10^3/uL (0.2-0.8); MONOCYTES % (AUTO) 7 % (2-9); NEUTROPHILS # (AUTO) 6.08 x10^3/uL (1.8-6.8); NEUTROPHILS % (AUTO) 72 % (42-75); PLATELET COUNT 167 x10^3/uL (130-400); RED BLOOD COUNT 5.53 x10^6/uL (4.38-5.82); RED CELL DISTRIBUTION WIDTH 13.8 % (9.4-14.8)
[2020-02-27 09:18] LABS: ALANINE AMINOTRANSFERASE 24 U/L (12-78); ALKALINE PHOSPHATASE 75 U/L (45-117); BILIRUBIN,TOTAL 1.3 mg/dL (0.2-1.0); CREATININE 0.93 mg/dL (0.7-1.3); TOTAL PROTEIN 7.6 g/dL (6.4-8.2)
[2020-02-27] MEDS ORDERED: POTASSIUM CHLORIDE 20 MEQ TAB.ER.PRT PO ONE (10:00)
[2020-02-27] MEDS: LORazepam 1MG TABLET PO PRN (11:17)
[2020-02-27 19:15] VITALS: BP 113/80
[2020-02-27] MEDS: NICOTINE 14MG/24 HR PATCH.TD24 TD SCH (20:48)
[2020-02-28 07:29] VITALS: BP 126/92
[2020-02-28] MEDS: ACAMPROSATE 333 MG TABLET.DR PO SCH ×3 (08:21→20:03)
[2020-02-28] MEDS: NEUTRA PHOS K 250 MG TABLET PO SCH (08:22)
[2020-02-28] MEDS: MAGNESIUM OXIDE 400 MG TABLET PO SCH ×2 (08:22→20:03)
[2020-02-28 08:23] LABS: ANION GAP 4 mmol/L (5-15); CALCIUM 9.1 mg/dL (8.5-10.1); CHLORIDE 106 mmol/L (98-107)
[2020-02-28] MEDS: LISINOPRIL 10 MG TABLET PO SCH (08:23)
[2020-02-28] MEDS: SERTRALINE 50MG TABLET PO SCH (08:23)
[2020-02-28] MEDS: MULTIVITAMIN 1 TABLET PO SCH (08:23)
[2020-02-28 08:24] LABS: CREATININE 0.91 mg/dL (0.7-1.3)
[2020-02-28] MEDS: LORazepam 1MG TABLET PO PRN ×2 (08:30→13:23)
[2020-02-28 14:03] VITALS: BP 120/87
[2020-02-28] MEDS: THIAMINE 100MG TABLET PO SCH (15:49)
[2020-02-28 19:50] VITALS: BP 98/147
[2020-02-28] MEDS: NICOTINE 14MG/24 HR PATCH.TD24 TD SCH (20:03)
[2020-02-29 07:19] VITALS: BP 126/82
[2020-02-29] MEDS: SERTRALINE 100MG TABLET PO SCH (08:26)
[2020-02-29] MEDS: ACAMPROSATE 333 MG TABLET.DR PO SCH ×3 (08:26→19:51)
[2020-02-29] MEDS: LISINOPRIL 10 MG TABLET PO SCH (08:27)
[2020-02-29] MEDS: FOLIC ACID 1 MG TABLET PO SCH (08:27)
[2020-02-29] MEDS: MULTIVITAMIN 1 TABLET PO SCH (08:27)
[2020-02-29] MEDS: MAGNESIUM OXIDE 400 MG TABLET PO SCH ×2 (08:28→19:51)
[2020-02-29] MEDS: THIAMINE 100MG TABLET PO SCH (08:28)
[2020-02-29] MEDS: LORazepam 1MG TABLET PO PRN ×2 (15:28→19:54)
[2020-02-29 19:45] VITALS: BP 116/80
[2020-02-29] MEDS: NICOTINE 14MG/24 HR PATCH.TD24 TD SCH (19:51)
[2020-03-01 07:33] VITALS: BP 126/87
[2020-03-01] MEDS: ACAMPROSATE 333 MG TABLET.DR PO SCH ×3 (08:56→21:26)
[2020-03-01] MEDS: THIAMINE 100MG TABLET PO SCH (08:56)
[2020-03-01] MEDS: SERTRALINE 100MG TABLET PO SCH (08:57)
[2020-03-01] MEDS: LISINOPRIL 10 MG TABLET PO SCH (08:57)
[2020-03-01] MEDS: MAGNESIUM OXIDE 400 MG TABLET PO SCH ×2 (08:57→21:26)
[2020-03-01] MEDS: FOLIC ACID 1 MG TABLET PO SCH (08:57)
[2020-03-01] MEDS: MULTIVITAMIN 1 TABLET PO SCH (08:58)
[2020-03-01] MEDS: DISULFIRAM 250 MG TABLET PO SCH (09:39)
[2020-03-01 19:15] VITALS: BP 118/79
[2020-03-01] MEDS: NICOTINE 14MG/24 HR PATCH.TD24 TD SCH (21:27)
[2020-03-02 07:26] VITALS: BP 120/80
[2020-03-02] MEDS: THIAMINE 100MG TABLET PO SCH (08:29)
[2020-03-02] MEDS: MULTIVITAMIN 1 TABLET PO SCH (08:29)
[2020-03-02] MEDS: LISINOPRIL 10 MG TABLET PO SCH (08:29)
[2020-03-02] MEDS: SERTRALINE 100MG TABLET PO SCH (08:30)
[2020-03-02] MEDS: ACAMPROSATE 333 MG TABLET.DR PO SCH ×3 (08:30→20:23)
[2020-03-02] MEDS: MAGNESIUM OXIDE 400 MG TABLET PO SCH ×2 (08:30→20:23)
[2020-03-02] MEDS: FOLIC ACID 1 MG TABLET PO SCH (08:31)
[2020-03-02] MEDS: DISULFIRAM 250 MG TABLET PO SCH (08:31)
[2020-03-02 19:57] VITALS: BP 118/79
[2020-03-02] MEDS: NICOTINE 14MG/24 HR PATCH.TD24 TD SCH (20:23)
[2020-03-03 07:30] VITALS: BP 124/84
[2020-03-03] MEDS: ACAMPROSATE 333 MG TABLET.DR PO SCH ×3 (09:36→20:14)
[2020-03-03] MEDS: SERTRALINE 100MG TABLET PO SCH (09:36)
[2020-03-03] MEDS: FOLIC ACID 1 MG TABLET PO SCH (09:36)
[2020-03-03] MEDS: MULTIVITAMIN 1 TABLET PO SCH (09:36)
[2020-03-03] MEDS: THIAMINE 100MG TABLET PO SCH (09:36)
[2020-03-03] MEDS: MAGNESIUM OXIDE 400 MG TABLET PO SCH ×2 (09:36→20:13)
[2020-03-03] MEDS: LISINOPRIL 10 MG TABLET PO SCH (09:36)
[2020-03-03] MEDS: DISULFIRAM 250 MG TABLET PO SCH (09:37)
[2020-03-03 19:53] VITALS: BP 115/77
[2020-03-03] MEDS: NICOTINE 14MG/24 HR PATCH.TD24 TD SCH (20:15)
[2020-03-04 07:39] VITALS: BP 121/81
[2020-03-04] MEDS: ACAMPROSATE 333 MG TABLET.DR PO SCH ×3 (08:33→21:01)
[2020-03-04] MEDS: MULTIVITAMIN 1 TABLET PO SCH (08:33)
[2020-03-04] MEDS: FOLIC ACID 1 MG TABLET PO SCH (08:33)
[2020-03-04] MEDS: DISULFIRAM 250 MG TABLET PO SCH (08:33)
[2020-03-04] MEDS: MAGNESIUM OXIDE 400 MG TABLET PO SCH ×2 (08:33→21:01)
[2020-03-04] MEDS: THIAMINE 100MG TABLET PO SCH (08:34)
[2020-03-04] MEDS: LISINOPRIL 10 MG TABLET PO SCH (08:34)
[2020-03-04] MEDS: SERTRALINE 100MG TABLET PO SCH (08:34)
[2020-03-04] MEDS ORDERED: MULT1TAB60 PO (12:29)
[2020-03-04] MEDS ORDERED: LISI-167 PO (12:29)
[2020-03-04] MEDS ORDERED: NICO-486 TD (12:29)
[2020-03-04] MEDS ORDERED: ACAM333T7 PO (12:29)
[2020-03-04] MEDS ORDERED: SERT100T32 PO (12:29)
[2020-03-04] MEDS ORDERED: DISU250T2 PO (12:29)
[2020-03-04] MEDS ORDERED: MAGN400T50 PO (12:29)
[2020-03-04 19:47] VITALS: BP 114/77
[2020-03-04] MEDS: NICOTINE 14MG/24 HR PATCH.TD24 TD SCH (21:00)
[2020-03-05 07:56] VITALS: BP 124/80
[2020-03-05] MEDS: DISULFIRAM 250 MG TABLET PO SCH (09:05)
[2020-03-05] MEDS: ACAMPROSATE 333 MG TABLET.DR PO SCH (09:05)
[2020-03-05] MEDS: FOLIC ACID 1 MG TABLET PO SCH (09:05)
[2020-03-05] MEDS: LISINOPRIL 10 MG TABLET PO SCH (09:06)
[2020-03-05] MEDS: SERTRALINE 100MG TABLET PO SCH (09:06)
[2020-03-05] MEDS: THIAMINE 100MG TABLET PO SCH (09:06)
[2020-03-05] MEDS: MAGNESIUM OXIDE 400 MG TABLET PO SCH (09:13)
[2020-03-05] MEDS: MULTIVITAMIN 1 TABLET PO SCH (09:13)
== END 2020-03-05 09:20 | disposition home or self-care (01) | DRG 885 ==
LOC: 3E 16:18
PROVIDERS: ADMIT Psychiatry & Neurology Psychosomatic Medicine; ATTEND Psychiatry & Neurology Psychosomatic Medicine
DX: F33.2 Major depressive disorder, recurrent severe without psychotic features (principal); N17.0 Acute kidney failure with tubular necrosis; F10.239 Alcohol dependence with withdrawal, unspecified; D75.1 Secondary polycythemia; E86.0 Dehydration; F17.210 Nicotine dependence, cigarettes, uncomplicated; I10 Essential (primary) hypertension; Z56.0 Unemployment, unspecified; Z79.899 Other long term (current) drug therapy; Z91.5 Personal history of self-harm; F10.229 Alcohol dependence with intoxication, unspecified
CPT/HCPCS: 36415; 71045; 80048; 80053; 80061; 82140; 85025; 93005

== ENCOUNTER 2020-09-15 01:53 | Emergency (ER) | payer MEDICAID ==
[~2020-09-15] VITALS: Ht 185.4 cm; Wt 95.0 kg
[~2020-09-15 01:53] MED LIST changes: +DISU250T2 PO; +MAGN400T50 PO; +MULT-449 PO; -MULT1TAB60 PO; +SERT100T32 PO
[2020-09-15] MEDS ORDERED: ONDANSETRON ODT 4 MG PO ONE (02:30)
[2020-09-15] MEDS ORDERED: THIAMINE 100MG TABLET PO ONE (02:30)
[2020-09-15 02:38] LABS: BASOPHILS % (AUTO) 1 % (0-1); EOSINOPHILS % (AUTO) 2 % (1-7); LYMPHOCYTES % (AUTO) 31 % (22-44); MEAN CORPUSCULAR HEMOGLOBIN 30.8 pg (27.5-34.5); MEAN CORPUSCULAR HGB CONC 34.3 g/dL (33.2-36.2); MEAN PLATELET VOLUME 10.1 fL (7.4-10.4); MONOCYTES % (AUTO) 6 % (2-9); NEUTROPHILS % (AUTO) 61 % (42-75); PLATELET COUNT 170 x10^3/uL (130-400); RED BLOOD COUNT 5.67 x10^6/uL (4.38-5.82); RED CELL DISTRIBUTION WIDTH 14.8 % (9.4-14.8)
[2020-09-15 02:40] LABS: MD NO
[2020-09-15 02:43] LABS: ALANINE AMINOTRANSFERASE 55 U/L (12-78); ALBUMIN 3.7 g/dL (3.4-5.0); ANION GAP 6 mmol/L (5-15); CALCIUM 8.4 mg/dL (8.5-10.1); CHLORIDE 112 mmol/L (98-107); CREATININE 0.97 mg/dL (0.7-1.3)
[2020-09-15] MEDS ORDERED: ONDANSETRON ODT 4 MG ONE (02:43)
[2020-09-15] MEDS ORDERED: THIAMINE 100MG TABLET ONE (02:43)
[2020-09-15 02:44] LABS: ALKALINE PHOSPHATASE 88 U/L (45-117); BILIRUBIN,TOTAL 0.6 mg/dL (0.2-1.0); TOTAL PROTEIN 7.7 g/dL (6.4-8.2)
[2020-09-15 03:11] VITALS: BP 121/86
== END 2020-09-15 03:13 | disposition home or self-care (01) ==
LOC: ED 03:09
DX: F10.220 Alcohol dependence with intoxication, uncomplicated (principal); R11.0 Nausea; I10 Essential (primary) hypertension; F17.210 Nicotine dependence, cigarettes, uncomplicated; Y90.9 Presence of alcohol in blood, level not specified
CPT/HCPCS: 36415; 80053; 80320; 85025; 99283; 99406; Q0162; G0480

== ENCOUNTER 2020-10-29 21:52 | Emergency (ER) | payer MEDICAID ==
[~2020-10-29] VITALS: Ht 185.4 cm; Wt 114.7 kg
[2020-10-29 21:59] VITALS: BP 165/115
--- NOTE | 2020-10-29 23:18 | NUR ---
nil x 1
--- NOTE | 2020-10-29 23:42 | NUR ---
PATIENT PARTNER: NIL X 2 WHEN CALLED FOR ROOM.
--- NOTE | 2020-10-29 23:52 | NUR ---
RESOURCE SPECIALIST: NIL X 3 WHEN CALLED FOR ROOM. PT. ELOPED. ADAM LO AWARE.
== END 2020-10-29 23:53 | disposition left against medical advice (07) ==
LOC: ED 22:00
DX: F10.129 Alcohol abuse with intoxication, unspecified (principal); Y90.0 Blood alcohol level of less than 20 mg/100 ml
CPT/HCPCS: 80053; 85025; 99284; 99406

== ENCOUNTER 2020-11-16 00:10 | Emergency (ER) | payer MEDICAID ==
[~2020-11-16] VITALS: Ht 185.4 cm; Wt 113.3 kg
--- NOTE | 2020-11-16 00:36 | NUR ---
All belongings removed, labelled unsearched and placed in locked storqage area. I did give opportunity to take his belongings home and she said no.
--- NOTE | 2020-11-16 01:08 | NUR ---
Sitter at bedside. This RN called poison control. . Poison control reported: keep on surveillance monitor, fluids and vasopressors to control BP as needed, 4 hr post ingestion Tylenol level, EKG, salicylate, CBC, chem.
--- NOTE | 2020-11-16 01:12 | NUR ---
Poison control information reported to Dr. Reid. Lab at bedside. Sitter at bedside.
[2020-11-16 01:27] LABS: BASOPHILS % (AUTO) 0 % (0-1); EOSINOPHILS % (AUTO) 2 % (1-7); LYMPHOCYTES % (AUTO) 24 % (22-44); MEAN CORPUSCULAR HEMOGLOBIN 31.4 pg (27.5-34.5); MEAN CORPUSCULAR HGB CONC 34.1 g/dL (33.2-36.2); MEAN PLATELET VOLUME 9.7 fL (7.4-10.4); MONOCYTES % (AUTO) 5 % (2-9); NEUTROPHILS % (AUTO) 68 % (42-75); PLATELET COUNT 229 x10^3/uL (130-400); RED BLOOD COUNT 6.04 x10^6/uL (4.38-5.82); RED CELL DISTRIBUTION WIDTH 16.4 % (9.4-14.8)
[2020-11-16 01:30] LABS: MD NO
--- NOTE | 2020-11-16 01:30 | NUR ---
Assisted pt to bedside urinal- pt unsteady, dizzy. UA collected and tubed to lab.
[2020-11-16 01:36] LABS: ALBUMIN 3.6 g/dL (3.4-5.0); ANION GAP 11 mmol/L (5-15); CALCIUM 8.6 mg/dL (8.5-10.1); CHLORIDE 112 mmol/L (98-107)
--- NOTE | 2020-11-16 01:39 | NUR ---
1am Late entry: Mother Nela [phone]. Asked to leave 2nd to policy re: L2K. Mother aware of process and POC. Pt remains on court recording monitor, x1 garage door down. Sitter in line of site. Belongings to storage rm 38 bin.
[2020-11-16 01:40] LABS: ALANINE AMINOTRANSFERASE 112 U/L (12-78); ALKALINE PHOSPHATASE 114 U/L (45-117); BILIRUBIN,TOTAL 0.8 mg/dL (0.2-1.0); CREATININE 1.07 mg/dL (0.7-1.3); TOTAL PROTEIN 7.7 g/dL (6.4-8.2)
--- NOTE | 2020-11-16 01:45 | NUR ---
Report to YASMEEN Eid
--- NOTE | 2020-11-16 01:51 | NUR ---
RN at bedside, sitter at bedside.
[2020-11-16 01:57] LABS: SALICYLATE LEVEL < 1.7 mg/dL (2.8-20.0)
--- NOTE | 2020-11-16 02:14 | NUR ---
TASK RN: PT 87% ON RA WHILE SLEEPING. 2 L NC PLACED ON PT, NOW 93%.
[2020-11-16 02:31] LABS: AMPHETAMINE SCREEN, URINE Negative (Negative); BARBITURATE SCREEN, URINE Negative (Negative); BENZODIAZEPINE SCREEN, URINE Positive (Negative); CANNABINOID SCREEN, URINE Negative (Negative); COCAINE SCREEN, URINE Negative (Negative); METHADONE SCREEN, URINE Negative (Negative); OPIATE SCREEN, URINE Negative (Negative)
--- NOTE | 2020-11-16 02:49 | NUR ---
PT RESTING ON GURNEY NADN RESP EVEN AND UNLABORED SITTER IN SIGHT AT THIS TIME, PT REMAINS ON MONITORING ONE GARAGE DOOR IN USE TO ALLOW FOR MONITORING TO REMAIN IN PLACE
--- NOTE | 2020-11-16 03:30 | NUR ---
SITTER IN SIGHT PT RESTING ON LONG
--- NOTE | 2020-11-16 03:45 | NUR ---
PT BP DOWN TO 101/65, DR LONGORIA NOTIFIED PT ALSO KLEVERKEY. ADDITIONAL ORDERS AT THIS TIME
[2020-11-16] MEDS ORDERED: THIAMINE 100MG TABLET ONE (03:55)
[2020-11-16] MEDS ORDERED: ONDANSETRON 2MG/ML, 2ML ONE (03:55)
[2020-11-16] MEDS ORDERED: DIAZEPAM 5 MG TABLET ONE (03:55)
[2020-11-16] MEDS ORDERED: DIAZEPAM 5 MG TABLET PO ONE (04:00)
[2020-11-16] MEDS ORDERED: SODIUM CHLORIDE 0.9% 1,000ML IVBOLUS ONE ×2 (04:00→07:00)
[2020-11-16] MEDS ORDERED: ONDANSETRON 2MG/ML, 2ML IVPush ONE (04:00)
[2020-11-16] MEDS ORDERED: THIAMINE 100MG TABLET PO ONE (04:00)
--- NOTE | 2020-11-16 04:00 | NUR ---
PT MEDICATED PER MAR TOLERATED WELL
--- NOTE | 2020-11-16 05:16 | NUR ---
PT NOW RESTING COMFORTABLY ON [facility] SITTER IN VIEW
--- NOTE | 2020-11-16 06:21 | NUR ---
PT UP TO RESTROOM BACK TO BED STEADY GAIT NO ASSIST REQ. PT RESTING BREATHALYZER AT THIS TIME 0.18. LEGAL HOLD TO BE CERTIFIED AFTER 0.08. SITTER IN SIGHT NO NEEDS AT THIS TIME
--- NOTE | 2020-11-16 06:51 | NUR ---
Report received from YASMEEN Eid, and care assumed. Pt resting on R side in bed, easily awakens to soft voice, denies c/o pain at this time and second liter of NS scanned and running wide open without issue. IV site benign. Sitter outside doorway at this time. Plan of care as per report is to let BAL decrease to legal limit then start legal hold for suicide attempt.
--- NOTE | 2020-11-16 08:32 | NUR ---
Pt awakens easily, denies c/o pain. Continues to verbalize suicidal ideation on reassessment. IVF not running since last assessment. Site flushed and running well again. Breakfast tray brought into bedside and water as requested at this time.
--- NOTE | 2020-11-16 10:07 | NUR ---
Pt sleeping with mouth open and noted SpO2 92% with 2L/min NC. O2 increased to 3L/min and will reassess shortly for effectiveness. Pt awakens easily and denies c/o at this time. IVF completed and site saline locked at this time.
--- NOTE | 2020-11-16 10:30 | NUR ---
Pt continues to sleep on L side with BP cuff on RUE with low SBP but MAP>65 noted. SpO2 remains 92-95% with 3L/min NC with pt mouth-breathing at this time.
--- NOTE | 2020-11-16 12:20 | NUR ---
Pt up out of bed to bathroom at this time. Pt noted to be tremulous with steady gait and oriented x4 without head fullness. [facility] staff editor present at doorway for assessment of whether pt is appropriate for that unit at this time. Request for CIWA protocol orders made by this RN and states she will speak with Dr. Milton about possible O2 orders for noted desaturation with NC during sleep while here in ED today. Pt sats 96-97% on RA while up and moving at this time.
--- NOTE | 2020-11-16 12:55 | NUR ---
Spoke with ER physician at this time about pt's tremulousness and feeling tingling sensations to BUE and BLE with hx detox s/s from ETOH in the past. CIWA scale assessment to be done and Ativan PRN to be ordered per MD.
[2020-11-16] MEDS ORDERED: LORazepam 1MG TABLET PO ONE (13:00)
[2020-11-16] MEDS ORDERED: LORazepam 1MG TABLET ONE (13:06)
--- NOTE | 2020-11-16 13:12 | NUR ---
Pt given Ativan PO without issue. Pt assisted off monitor to use the restroom at this time and updated to plan of care to go either to [facility] or be admitted until medically stable here at [facility]. Pt states understanding and has c/o headache and fullness.
[2020-11-16 13:21] VITALS: BP 120/80
--- NOTE | 2020-11-16 14:00 | NUR ---
Report given to YASMEEN Cochran and care transferred.
--- NOTE | 2020-11-16 14:05 | NUR ---
RECEIVED REPORT FROM EMMY ARANA AND ASSUMED CARE. PT LYING IN BED WITH EYES CLOSED AND IN DIRECT VIEW OF SITTER
--- NOTE | 2020-11-16 14:57 | NUR ---
REPORT TO ALISA ARANA. GROVERWA COMPLETED WITH SCORE OF 11. TO BE TRANSPORTED TO FLOOR
[2020-11-16] MEDS ORDERED: TETRACYCLINE (15:32)
== END 2020-11-16 23:38 | disposition other institution (70) ==
LOC: ED 00:36
DX: T51.92XA Toxic effect of unspecified alcohol, intentional self-harm, initial encounter (principal); T14.91XA Suicide attempt, initial encounter; F32.9 Major depressive disorder, single episode, unspecified; I10 Essential (primary) hypertension; F17.200 Nicotine dependence, unspecified, uncomplicated; Y92.89 Other specified places as the place of occurrence of the external cause
CPT/HCPCS: 36415; 80053; 80299; 80307; 80320; 80329; 85025; 87426; 93005; 96361; 96374; 99285; J2405; J7030; G0480

== ENCOUNTER 2020-11-16 14:16 | Inpatient (IN) | payer MEDICAID ==
[~2020-11-16] VITALS: Ht 185.4 cm; Wt 104.5 kg
[2020-11-16] MEDS ORDERED: ONDANSETRON ODT 4 MG PO PRN (14:30)
[2020-11-16] MEDS ORDERED: ACETAMINOPHEN 325 MG TABLET PO PRN (14:30)
[2020-11-16] MEDS: LORazepam 1MG TABLET PO SCH ×3 (14:30→19:30)
[2020-11-16] MEDS ORDERED: LORazepam 1MG TABLET PO PRN ×5 (14:30→16:30)
[2020-11-16] MEDS: NICOTINE 14MG/24 HR PATCH.TD24 TD SCH (14:30)
[2020-11-16] MEDS ORDERED: DOCUSATE 100 MG CAPSULE PO PRN (14:30)
[2020-11-16] MEDS ORDERED: POLYETHYLENE GLYCOL 17 GM PACKET PO PRN (14:30)
[2020-11-16] MEDS ORDERED: LORazepam 1MG TABLET ONE (15:30)
[2020-11-16] MEDS ORDERED: PLEASE ENTER HEIGHT AND WEIGHT MC SCH (15:30)
[2020-11-16] MEDS ORDERED: NICOTINE 14MG/24 HR PATCH.TD24 ONE (15:31)
[2020-11-16] MEDS ORDERED: TETRACYCLINE (15:32)
[2020-11-16 15:36] VITALS: BP 153/92
[2020-11-16] MEDS ORDERED: LORazepam 0.5MG TABLET PO PRN (16:30)
[2020-11-16 17:17] VITALS: BP 138/105
[2020-11-16 19:24] VITALS: BP 130/87
[2020-11-16] MEDS: ACETAMINOPHEN 500 MG TABLET PO PRN (19:30)
[2020-11-16 23:00] VITALS: BP 111/71
[2020-11-17] VITALS (7 sets, daily range): BP systolic 119–148; BP diastolic 76–90
[2020-11-17] MEDS: LORazepam 1MG TABLET PO SCH ×4 (04:25→20:09)
[2020-11-17 06:43] LABS: BASOPHILS % (AUTO) 0 % (0-1); EOSINOPHILS % (AUTO) 5 % (1-7); LYMPHOCYTES % (AUTO) 14 % (22-44); MEAN CORPUSCULAR HEMOGLOBIN 31.2 pg (27.5-34.5); MEAN CORPUSCULAR HGB CONC 34.1 g/dL (33.2-36.2); MEAN PLATELET VOLUME 9.8 fL (7.4-10.4); MONOCYTES % (AUTO) 7 % (2-9); NEUTROPHILS % (AUTO) 74 % (42-75); PLATELET COUNT 116 x10^3/uL (130-400); RED BLOOD COUNT 5.34 x10^6/uL (4.38-5.82); RED CELL DISTRIBUTION WIDTH 16.1 % (9.4-14.8)
[2020-11-17 06:45] LABS: MD NO
[2020-11-17 06:52] LABS: ALANINE AMINOTRANSFERASE 76 U/L (12-78); ALBUMIN 2.9 g/dL (3.4-5.0); ANION GAP 4 mmol/L (5-15); CALCIUM 8.6 mg/dL (8.5-10.1); CHLORIDE 106 mmol/L (98-107); CHOLESTEROL, TOTAL 176 mg/dL (140-239); CREATININE 0.79 mg/dL (0.7-1.3)
[2020-11-17 07:00] LABS: ALKALINE PHOSPHATASE 95 U/L (45-117); BILIRUBIN,TOTAL 1.2 mg/dL (0.2-1.0); CHOL/HDL RATIO 3.5; FREE T4 (FREE THYROXINE) 0.82 ng/dL (0.76-1.46); HDL CHOL % 29 % (26-37); HDL CHOLESTEROL (DIRECT) 51 mg/dL (40-60); LDL CHOLESTEROL,CALCULATED 107 mg/dL (54-169); LDL/HDL RATIO 2.1 (0.5-3.0); TOTAL PROTEIN 6.6 g/dL (6.4-8.2); TRIGLYCERIDES 91 mg/dL (50-200); VLDL CHOLESTEROL 18 mg/dL (0-25)
[2020-11-17] MEDS: THIAMINE 100MG TABLET PO SCH (07:54)
[2020-11-17] MEDS: FOLIC ACID 1 MG TABLET PO SCH (07:54)
[2020-11-17] MEDS: NICOTINE 14MG/24 HR PATCH.TD24 TD SCH (14:30)
[2020-11-17 17:07] LABS: MICROSCOPIC NOT IND
[2020-11-17] MEDS: ACETAMINOPHEN 500 MG TABLET PO PRN (20:09)
[2020-11-18 04:17] VITALS: BP 126/89
[2020-11-18] MEDS: LORazepam 1MG TABLET PO SCH ×4 (04:20→20:23)
[2020-11-18 07:30] VITALS: BP 129/82
[2020-11-18] MEDS: THIAMINE 100MG TABLET PO SCH (08:28)
[2020-11-18] MEDS: FOLIC ACID 1 MG TABLET PO SCH (08:28)
[2020-11-18] MEDS: NICOTINE 14MG/24 HR PATCH.TD24 TD SCH ×2 (08:33→08:59)
[2020-11-18 19:58] VITALS: BP 142/100
[2020-11-18] MEDS: ACETAMINOPHEN 500 MG TABLET PO PRN (20:22)
[2020-11-19 02:50] VITALS: BP 132/82
[2020-11-19] MEDS: LORazepam 1MG TABLET PO SCH ×4 (02:54→20:58)
[2020-11-19 07:44] VITALS: BP 124/84
[2020-11-19] MEDS: FOLIC ACID 1 MG TABLET PO SCH (08:41)
[2020-11-19] MEDS: THIAMINE 100MG TABLET PO SCH (08:41)
[2020-11-19] MEDS: NICOTINE 14MG/24 HR PATCH.TD24 TD SCH (08:43)
[2020-11-19 12:51] VITALS: BP 135/96
[2020-11-19] MEDS: SERTRALINE 100MG TABLET PO SCH (13:40)
[2020-11-19 15:14] VITALS: BP 130/86
[2020-11-19 19:40] VITALS: BP 147/91
[2020-11-19] MEDS: PRAZOSIN 2 MG CAPSULE PO SCH (20:58)
[2020-11-20] MEDS: ACETAMINOPHEN 500 MG TABLET PO PRN (02:21)
[2020-11-20] MEDS: LORazepam 1MG TABLET PO SCH ×4 (02:21→20:23)
[2020-11-20 07:22] VITALS: BP 112/71
[2020-11-20] MEDS: FOLIC ACID 1 MG TABLET PO SCH (08:42)
[2020-11-20] MEDS: SERTRALINE 100MG TABLET PO SCH (08:43)
[2020-11-20] MEDS: THIAMINE 100MG TABLET PO SCH (08:43)
[2020-11-20] MEDS: NICOTINE 14MG/24 HR PATCH.TD24 TD SCH (08:44)
[2020-11-20 19:55] VITALS: BP 152/100
[2020-11-20] MEDS: PRAZOSIN 2 MG CAPSULE PO SCH (20:23)
[2020-11-21] MEDS: LORazepam 1MG TABLET PO SCH ×2 (03:00→07:42)
[2020-11-21 07:25] VITALS: BP 124/84
[2020-11-21] MEDS: THIAMINE 100MG TABLET PO SCH (07:43)
[2020-11-21] MEDS: FOLIC ACID 1 MG TABLET PO SCH (07:43)
[2020-11-21] MEDS: NICOTINE 14MG/24 HR PATCH.TD24 TD SCH (07:43)
[2020-11-21] MEDS: SERTRALINE 100MG TABLET PO SCH (07:43)
[2020-11-21 19:30] VITALS: BP 135/90
[2020-11-21] MEDS: PRAZOSIN 2 MG CAPSULE PO SCH (20:28)
[2020-11-22 07:32] VITALS: BP 130/74
[2020-11-22] MEDS: NICOTINE 14MG/24 HR PATCH.TD24 TD SCH (07:58)
[2020-11-22] MEDS: THIAMINE 100MG TABLET PO SCH (07:59)
[2020-11-22] MEDS: SERTRALINE 100MG TABLET PO SCH (07:59)
[2020-11-22] MEDS: FOLIC ACID 1 MG TABLET PO SCH (07:59)
[2020-11-22 19:40] VITALS: BP 127/84
[2020-11-22] MEDS: PRAZOSIN 2 MG CAPSULE PO SCH (20:39)
[2020-11-23 07:41] VITALS: BP 112/75
[2020-11-23] MEDS: SERTRALINE 100MG TABLET PO SCH (07:47)
[2020-11-23] MEDS: FOLIC ACID 1 MG TABLET PO SCH (07:47)
[2020-11-23] MEDS: THIAMINE 100MG TABLET PO SCH (07:48)
[2020-11-23] MEDS: NICOTINE 14MG/24 HR PATCH.TD24 TD SCH (07:48)
[2020-11-23] MEDS ORDERED: PRAZ2CAP2 PO (14:39)
[2020-11-23] MEDS ORDERED: NICO-486 TD (14:39)
[2020-11-23] MEDS ORDERED: SERT100T32 PO (14:39)
[2020-11-23] MEDS ORDERED: ACAM333T7 PO (15:14)
[2020-11-23] MEDS: ACAMPROSATE 333 MG TABLET.DR PO SCH ×3 (15:45→20:39)
[2020-11-23] MEDS ORDERED: DIPHENHYDRAMINE 50 MG CAPSULE PO PRN (16:30)
[2020-11-23 19:30] VITALS: BP 135/89
[2020-11-23] MEDS: PRAZOSIN 2 MG CAPSULE PO SCH (20:39)
[2020-11-24 07:45] VITALS: BP 105/66
[2020-11-24] MEDS: ACAMPROSATE 333 MG TABLET.DR PO SCH (08:32)
[2020-11-24] MEDS: FOLIC ACID 1 MG TABLET PO SCH (08:32)
[2020-11-24] MEDS: THIAMINE 100MG TABLET PO SCH (08:32)
[2020-11-24] MEDS: NICOTINE 14MG/24 HR PATCH.TD24 TD SCH (08:32)
[2020-11-24] MEDS: SERTRALINE 100MG TABLET PO SCH (08:32)
== END 2020-11-24 11:40 | disposition home or self-care (01) | DRG 885 ==
LOC: 3E 15:05
PROVIDERS: ADMIT Psychiatry & Neurology Psychosomatic Medicine; ATTEND Psychiatry & Neurology Psychosomatic Medicine
DX: F33.2 Major depressive disorder, recurrent severe without psychotic features (principal); J96.01 Acute respiratory failure with hypoxia; F10.239 Alcohol dependence with withdrawal, unspecified; I10 Essential (primary) hypertension; D75.1 Secondary polycythemia; R74.01 Elevation of levels of liver transaminase levels; Z79.899 Other long term (current) drug therapy; Z91.5 Personal history of self-harm; Z82.5 Family history of asthma and other chronic lower respiratory diseases; Z81.1 Family history of alcohol abuse and dependence; Z80.9 Family history of malignant neoplasm, unspecified
CPT/HCPCS: 36415; 71045; 80053; 80061; 81003; 84439; 84443; 85025; 93005; Q0162

== ENCOUNTER 2021-04-19 23:58 | Emergency (ER) | payer MEDICAID ==
[~2021-04-19] VITALS: Ht 185.4 cm; Wt 108.7 kg
[~2021-04-19 23:58] MED LIST changes: +PRAZ2CAP2 PO; +TETRACYCLINE
--- NOTE | 2021-04-20 00:47 | NUR ---
PT PRESENTS TO ER WITH MOTHER FOR ALCOHOL INTOXICATION, PT STATES HE WAS SOBER FOR 3 MONTHS AND RECENTLY RELAPSED AND HAS BEEN DRINKING FOR A WEEK NOW, PT STATES HE HAS BEEN DRINKING A FIFTH OF VODKA DAILY, PT A/OX4, PT AMBULATED INTO THE ROOM, PT WAS STABLE ON HIS FEET WHILE AMBULATING, PT HOOKED UP TO BI DATA ARCHITECT, BP CUFF AND PULSE OX, NAD AT THIS TIME
[2021-04-20] MEDS ORDERED: ONDANSETRON 2MG/ML, 2ML IVPush ONE ×2 (01:00→03:30)
[2021-04-20] MEDS ORDERED: SODIUM CHLORIDE 0.9% 1,000ML IVBOLUS ONE (01:00)
[2021-04-20] MEDS ORDERED: LORazepam 2 MG/ML, 1ML IVPush ONE (01:00)
[2021-04-20] MEDS ORDERED: LORazepam 2 MG/ML, 1ML ONE (01:05)
[2021-04-20 01:13] LABS: BASOPHILS % (AUTO) 1 % (0-1); EOSINOPHILS % (AUTO) 0 % (1-7); LYMPHOCYTES % (AUTO) 13 % (22-44); MEAN CORPUSCULAR HEMOGLOBIN 30.5 pg (27.5-34.5); MEAN CORPUSCULAR HGB CONC 34.5 g/dL (33.2-36.2); MEAN PLATELET VOLUME 9.3 fL (7.4-10.4); MONOCYTES % (AUTO) 4 % (2-9); NEUTROPHILS % (AUTO) 83 % (42-75); PLATELET COUNT 238 x10^3/uL (130-400); RED BLOOD COUNT 6.23 x10^6/uL (4.38-5.82); RED CELL DISTRIBUTION WIDTH 14.3 % (9.4-14.8)
--- NOTE | 2021-04-20 01:14 | NUR ---
PT LAYING IN BED, A/OX4, ALL NEEDS IN REACH, CALL LIGHT IN REACH, IV STARTED, FLUIDS RUNNING, MEDICATION ADMINISTERED, MOTHER AT BEDSIDE
[2021-04-20] MEDS ORDERED: ONDANSETRON 2MG/ML, 2ML ONE ×2 (01:17→03:21)
[2021-04-20 01:25] LABS: ALANINE AMINOTRANSFERASE 29 U/L (12-78); ANION GAP 17 mmol/L (5-15); CALCIUM 8.5 mg/dL (8.5-10.1); CHLORIDE 103 mmol/L (98-107); CREATININE 0.93 mg/dL (0.7-1.3)
[2021-04-20 01:27] LABS: ALKALINE PHOSPHATASE 104 U/L (45-117); BILIRUBIN,TOTAL 0.7 mg/dL (0.2-1.0)
[2021-04-20 01:56] LABS: AMPHETAMINE SCREEN, URINE Negative (Negative); BARBITURATE SCREEN, URINE Negative (Negative); BENZODIAZEPINE SCREEN, URINE Negative (Negative); CANNABINOID SCREEN, URINE Negative (Negative); COCAINE SCREEN, URINE Negative (Negative); METHADONE SCREEN, URINE Negative (Negative); OPIATE SCREEN, URINE Negative (Negative)
--- NOTE | 2021-04-20 02:29 | NUR ---
PT ASLEEP IN BED, ALL NEEDS IN REACH, CALL LIHGT IN REACH, NAD, MOTHER AT BEDSIDE
[2021-04-20 03:34] VITALS: BP 124/82
== END 2021-04-20 03:43 | disposition home or self-care (01) ==
LOC: ED 04-20 03:41
DX: G31.2 Degeneration of nervous system due to alcohol (principal); F10.220 Alcohol dependence with intoxication, uncomplicated; E86.0 Dehydration; R41.82 Altered mental status, unspecified; I10 Essential (primary) hypertension; F17.210 Nicotine dependence, cigarettes, uncomplicated; Y90.0 Blood alcohol level of less than 20 mg/100 ml
CPT/HCPCS: 36415; 80053; 80307; 80320; 85025; 93005; 96374; 96375; 96376; 99284; 99406; J2060; J2405; J7030; G0480

== ENCOUNTER 2021-05-08 04:05 | Inpatient (IN) | payer MEDICAID ==
[~2021-05-08] VITALS: Ht 185.4 cm; Wt 111.2 kg
--- NOTE | 2021-05-08 04:50 | NUR ---
Pt is calm and cooperative, however, withdrawn, and tearful during assessment. Pt endorses a recent loss of a friend which has contributed to his depression and thoughts of SI. Pt states his plan is to cut himself, and is scared to shave, because he thinks he would harm himself. Pt endorses previous attempts of SI in october of this year when he attempted to overdose on his blood pressure medication. pt is a daily smoker and daily drinker, endorses liqour use. Denies drug use. Denies hx of withdrawl seizures from alcohol. Does not endorse any physical complaints. Denies chest pain, sob, recent sick contacts or travel. Pts mother is at bedside. Pt is alert and oriented x4, able to make his needs known. Pt and mother are agreeable to plan of care.
--- NOTE | 2021-05-08 05:18 | NUR ---
Pt ambulatory to provide urine specimen.
[2021-05-08] MEDS ORDERED: SODIUM CHLORIDE 0.9% 1,000 ML IV ONE ×2 (05:30→08:00)
[2021-05-08] MEDS ORDERED: THIAMINE 100 MG/ML, 2ML ONE (05:30)
[2021-05-08] MEDS ORDERED: ONDANSETRON 2MG/ML, 2ML ONE (05:30)
[2021-05-08] MEDS ORDERED: ONDANSETRON 2MG/ML, 2ML IVPush ONE (05:30)
[2021-05-08] MEDS ORDERED: SODIUM CHLORIDE FLUSH 10ML SYR IVF ONE (05:30)
[2021-05-08] MEDS ORDERED: SODIUM CHLORIDE 0.9% 1,000ML IVBOLUS ONE (05:30)
[2021-05-08] MEDS ORDERED: THIAMINE 100 MG in SODIUM CHLORIDE 0.9% 50 ML IVPB ONE (05:30)
[2021-05-08] MEDS ORDERED: LORazepam 2 MG/ML, 1ML IVPush PRN (05:30)
[2021-05-08] MEDS ORDERED: LORazepam 2 MG/ML, 1ML ONE (05:31)
[2021-05-08 06:09] LABS: MICROSCOPIC AUTO
[2021-05-08 06:10] LABS: ALANINE AMINOTRANSFERASE 69 U/L (12-78); ALBUMIN 3.9 g/dL (3.4-5.0); ANION GAP 7 mmol/L (5-15); CALCIUM 8.8 mg/dL (8.5-10.1); CHLORIDE 109 mmol/L (98-107); CREATININE 1.08 mg/dL (0.7-1.3)
[2021-05-08 06:14] LABS: ALKALINE PHOSPHATASE 99 U/L (45-117); BILIRUBIN,TOTAL 0.6 mg/dL (0.2-1.0); TOTAL PROTEIN 8.8 g/dL (6.4-8.2)
[2021-05-08 06:15] LABS: SALICYLATE LEVEL < 1.7 mg/dL (2.8-20.0)
[2021-05-08 06:18] LABS: AMPHETAMINE SCREEN, URINE Negative (Negative); BARBITURATE SCREEN, URINE Negative (Negative); BENZODIAZEPINE SCREEN, URINE Positive (Negative); CANNABINOID SCREEN, URINE Negative (Negative); COCAINE SCREEN, URINE Negative (Negative); METHADONE SCREEN, URINE Negative (Negative); OPIATE SCREEN, URINE Negative (Negative)
[2021-05-08 06:22] LABS: BASOPHILS % (AUTO) 1 % (0-1); EOSINOPHILS % (AUTO) 1 % (1-7); LYMPHOCYTES % (AUTO) 28 % (22-44); MEAN CORPUSCULAR HEMOGLOBIN 30.4 pg (27.5-34.5); MEAN CORPUSCULAR HGB CONC 34.4 g/dL (33.2-36.2); MEAN PLATELET VOLUME 9.3 fL (7.4-10.4); MONOCYTES % (AUTO) 5 % (2-9); NEUTROPHILS % (AUTO) 66 % (42-75); PLATELET COUNT 257 x10^3/uL (130-400); RED CELL DISTRIBUTION WIDTH 15.9 % (9.4-14.8)
--- NOTE | 2021-05-08 06:54 | NUR ---
Report given to ROBERT RN
--- NOTE | 2021-05-08 06:57 | NUR ---
Report from YASMEEN Vela. This RN to assume care.
--- NOTE | 2021-05-08 07:29 | NUR ---
Patient states, "I feel stronger now" after receiving meds and fluids.
--- NOTE | 2021-05-08 07:56 | NUR ---
Report to YASMEEN Ellison. Patient care transferred.
[2021-05-08] MEDS ORDERED: SODIUM CHLORIDE FLUSH 10ML SYR IVF PRN (08:00)
[2021-05-08] MEDS ORDERED: ENALAPRILAT 1.25 MG/ML, 2ML IVPush PRN (09:00)
[2021-05-08] MEDS ORDERED: ONDANSETRON 2MG/ML, 2ML IVPush PRN (09:00)
[2021-05-08] MEDS ORDERED: ACETAMINOPHEN 325 MG TABLET PO PRN (09:00)
[2021-05-08] MEDS ORDERED: ONDANSETRON ODT 4 MG PO PRN (09:00)
[2021-05-08] MEDS ORDERED: LORazepam 1MG TABLET PO PRN ×2 (09:00)
[2021-05-08] MEDS ORDERED: LORazepam 2 MG/ML, 1ML IV PRN ×4 (09:00)
--- NOTE | 2021-05-08 09:29 | NUR ---
REPORT TO YASMEEN SANCHES
[2021-05-08 10:42] VITALS: BP 128/83
[2021-05-08 12:06] VITALS: BP 128/83
[2021-05-08 14:20] VITALS: BP 122/75
[2021-05-08 19:44] VITALS: BP 139/87
[2021-05-09 01:46] VITALS: BP 143/86
[2021-05-09 05:37] LABS: BASOPHILS % (AUTO) 0 % (0-1); EOSINOPHILS % (AUTO) 2 % (1-7); LYMPHOCYTES % (AUTO) 15 % (22-44); MEAN CORPUSCULAR HEMOGLOBIN 30.5 pg (27.5-34.5); MEAN CORPUSCULAR HGB CONC 33.8 g/dL (33.2-36.2); MEAN PLATELET VOLUME 9.4 fL (7.4-10.4); MONOCYTES % (AUTO) 8 % (2-9); NEUTROPHILS % (AUTO) 75 % (42-75); PLATELET COUNT 152 x10^3/uL (130-400); RED BLOOD COUNT 5.61 x10^6/uL (4.38-5.82); RED CELL DISTRIBUTION WIDTH 15.6 % (9.4-14.8)
[2021-05-09 05:46] LABS: ALANINE AMINOTRANSFERASE 48 U/L (12-78); ALBUMIN 3.5 g/dL (3.4-5.0); ANION GAP 5 mmol/L (5-15); CALCIUM 8.9 mg/dL (8.5-10.1); CHLORIDE 100 mmol/L (98-107); CREATININE 0.71 mg/dL (0.7-1.3)
[2021-05-09 05:48] LABS: ALKALINE PHOSPHATASE 85 U/L (45-117); BILIRUBIN,TOTAL 1.2 mg/dL (0.2-1.0); TOTAL PROTEIN 7.7 g/dL (6.4-8.2)
[2021-05-09 06:36] VITALS: BP 119/81
[2021-05-09] MEDS: SERTRALINE 50MG TABLET PO SCH (08:09)
[2021-05-09] MEDS: PANTOPRAZOLE 40MG TABLET PO SCH (08:09)
[2021-05-09] MEDS: ACETAMINOPHEN 325 MG TABLET PO PRN (08:22)
[2021-05-09] MEDS: LORazepam 1MG TABLET PO PRN (08:22)
[2021-05-09] MEDS: POTASSIUM CHLORIDE 20 MEQ, MAGNESIUM SULFATE 1 GM, THIAMINE 200 MG, FOLIC ACID 1 MG, MV... IV SCH (11:05)
[2021-05-09 13:40] VITALS: BP 137/107
[2021-05-09 19:57] VITALS: BP 147/97
[2021-05-09] MEDS: HEPARIN 5,000 UNITS/ML, 1ML SQ SCH (20:06)
[2021-05-09] MEDS: PRAZOSIN 2 MG CAPSULE PO SCH (20:06)
[2021-05-09] MEDS: LORazepam 2 MG/ML, 1ML IV PRN (22:01)
[2021-05-10] MEDS: HEPARIN 5,000 UNITS/ML, 1ML SQ SCH ×3 (02:18→17:36)
[2021-05-10] MEDS: LORazepam 2 MG/ML, 1ML IV PRN (02:19)
[2021-05-10 03:32] VITALS: BP 148/99
[2021-05-10 06:18] LABS: ALBUMIN 3.5 g/dL (3.4-5.0); ANION GAP 6 mmol/L (5-15); BASOPHILS % (AUTO) 1 % (0-1); CALCIUM 9.1 mg/dL (8.5-10.1); CHLORIDE 104 mmol/L (98-107); EOSINOPHILS % (AUTO) 3 % (1-7); LYMPHOCYTES % (AUTO) 16 % (22-44); MEAN CORPUSCULAR HEMOGLOBIN 30.8 pg (27.5-34.5); MEAN CORPUSCULAR HGB CONC 34.8 g/dL (33.2-36.2); MEAN PLATELET VOLUME 9.8 fL (7.4-10.4); MONOCYTES % (AUTO) 9 % (2-9); NEUTROPHILS % (AUTO) 72 % (42-75); PLATELET COUNT 140 x10^3/uL (130-400); RED BLOOD COUNT 5.68 x10^6/uL (4.38-5.82); RED CELL DISTRIBUTION WIDTH 15.3 % (9.4-14.8)
[2021-05-10 06:21] LABS: ALANINE AMINOTRANSFERASE 42 U/L (12-78); ALKALINE PHOSPHATASE 87 U/L (45-117); BILIRUBIN,TOTAL 0.8 mg/dL (0.2-1.0); CREATININE 0.75 mg/dL (0.7-1.3); TOTAL PROTEIN 7.7 g/dL (6.4-8.2)
[2021-05-10 07:05] VITALS: BP 132/91
[2021-05-10] MEDS: SERTRALINE 50MG TABLET PO SCH (07:51)
[2021-05-10] MEDS: LORazepam 1MG TABLET PO PRN ×3 (07:51→16:49)
[2021-05-10] MEDS: ACETAMINOPHEN 325 MG TABLET PO PRN (07:51)
[2021-05-10] MEDS: PANTOPRAZOLE 40MG TABLET PO SCH (07:51)
[2021-05-10] MEDS ORDERED: LORazepam 0.5MG TABLET PO PRN (08:30)
[2021-05-10] MEDS: POTASSIUM CHLORIDE 20 MEQ, MAGNESIUM SULFATE 1 GM, THIAMINE 200 MG, FOLIC ACID 1 MG, MV... IV SCH (10:15)
[2021-05-10 12:57] VITALS: BP 120/82
[2021-05-10] MEDS: LORazepam 0.5MG TABLET PO SCH ×2 (17:35→20:29)
[2021-05-10 19:08] VITALS: BP 125/88
[2021-05-10] MEDS: PRAZOSIN 2 MG CAPSULE PO SCH (20:29)
[2021-05-11 01:34] VITALS: BP 96/82
[2021-05-11] MEDS: LORazepam 1MG TABLET PO PRN ×2 (02:15→06:35)
[2021-05-11] MEDS: HEPARIN 5,000 UNITS/ML, 1ML SQ SCH ×3 (02:15→18:28)
[2021-05-11 05:55] LABS: BASOPHILS % (AUTO) 1 % (0-1); EOSINOPHILS % (AUTO) 3 % (1-7); LYMPHOCYTES % (AUTO) 17 % (22-44); MEAN CORPUSCULAR HEMOGLOBIN 30.7 pg (27.5-34.5); MEAN CORPUSCULAR HGB CONC 34.4 g/dL (33.2-36.2); MONOCYTES % (AUTO) 9 % (2-9); NEUTROPHILS % (AUTO) 71 % (42-75); PLATELET COUNT 149 x10^3/uL (130-400); RED BLOOD COUNT 5.58 x10^6/uL (4.38-5.82); RED CELL DISTRIBUTION WIDTH 15.2 % (9.4-14.8)
[2021-05-11 06:06] LABS: ANION GAP 6 mmol/L (5-15); CHLORIDE 106 mmol/L (98-107)
[2021-05-11 06:08] LABS: CALCIUM 8.7 mg/dL (8.5-10.1); CREATININE 0.74 mg/dL (0.7-1.3)
[2021-05-11 06:37] VITALS: BP 111/77
[2021-05-11] MEDS: PANTOPRAZOLE 40MG TABLET PO SCH (08:31)
[2021-05-11] MEDS: SERTRALINE 50MG TABLET PO SCH (08:31)
[2021-05-11] MEDS: LORazepam 0.5MG TABLET PO SCH ×2 (08:31→16:11)
[2021-05-11] MEDS: POTASSIUM CHLORIDE 20 MEQ, MAGNESIUM SULFATE 1 GM, THIAMINE 200 MG, FOLIC ACID 1 MG, MV... IV SCH (09:52)
[2021-05-11] MEDS ORDERED: NICOTINE 14MG/24 HR PATCH.TD24 TD SCH (10:00)
[2021-05-11] MEDS: LORazepam 0.5MG TABLET PO PRN ×2 (10:18→16:11)
[2021-05-11] MEDS: ACETAMINOPHEN 325 MG TABLET PO PRN (12:04)
[2021-05-11 13:26] VITALS: BP 127/79
[2021-05-11] MEDS ORDERED: ACET325T26 PO (16:57)
[2021-05-11] MEDS ORDERED: SERT50TA28 PO (16:57)
[2021-05-11] MEDS ORDERED: LORA-445 PO (16:57)
[2021-05-11] MEDS ORDERED: NICO-486 TD (16:57)
[2021-05-11] MEDS ORDERED: ONDA4TAB13 PO (16:57)
[2021-05-11] MEDS ORDERED: PANT40TA6 PO (16:57)
[2021-05-11 19:52] VITALS: BP 130/90
[2021-05-12] MEDS ORDERED: SERTRALINE 50MG TABLET PO SCH (09:00)
== END 2021-05-11 21:00 | DRG 885 ==
LOC: ED 06:05 → EDIP 07:32 → 4EST 10:10
PROVIDERS: ADMIT Hospitalist; ATTEND Internal Medicine
DX: F33.2 Major depressive disorder, recurrent severe without psychotic features (principal); F10.239 Alcohol dependence with withdrawal, unspecified; F10.229 Alcohol dependence with intoxication, unspecified; F17.210 Nicotine dependence, cigarettes, uncomplicated; F43.10 Post-traumatic stress disorder, unspecified; I10 Essential (primary) hypertension; Z62.810 Personal history of physical and sexual abuse in childhood; J45.909 Unspecified asthma, uncomplicated; Y90.8 Blood alcohol level of 240 mg/100 ml or more; Z56.0 Unemployment, unspecified; Z63.8 Other specified problems related to primary support group; Z91.5 Personal history of self-harm
CPT/HCPCS: 36415; 80048; 80053; 80299; 80307; 80320; 80329; 81001; 83735; 84100; 85025; 93005; 96374; 96375; G0378; J1644; J2405; J3411; J3475; J3480; G0480; J2060; J7030

== ENCOUNTER 2021-05-11 17:28 | Inpatient (IN) | payer MEDICAID ==
[~2021-05-11] VITALS: Ht 185.4 cm; Wt 109.2 kg
[~2021-05-11 17:28] MED LIST changes: +ACET325T26 PO; +LORA-445 PO; +ONDA4TAB13 PO; +PANT40TA6 PO
[2021-05-11] MEDS ORDERED: POLYETHYLENE GLYCOL 17 GM PACKET PO PRN (18:00)
[2021-05-11] MEDS ORDERED: DOCUSATE 100 MG CAPSULE PO PRN (18:00)
[2021-05-11] MEDS ORDERED: ONDANSETRON ODT 4 MG PO PRN (18:00)
[2021-05-11] MEDS ORDERED: BISACODYL 10 MG SUPP PR PRN (18:00)
[2021-05-11 21:51] VITALS: BP 135/100
[2021-05-11] MEDS ORDERED: PLEASE ENTER HEIGHT AND WEIGHT MC SCH (22:00)
[2021-05-11] MEDS: LORazepam 1MG TABLET PO PRN (22:13)
[2021-05-12] MEDS: LORazepam 1MG TABLET PO SCH ×4 (03:00→20:08)
[2021-05-12 06:53] LABS: CHOL/HDL RATIO 5.2; LDL/HDL RATIO 3.8 (0.5-3.0)
[2021-05-12 07:28] VITALS: BP 133/94
[2021-05-12] MEDS: NICOTINE 14MG/24 HR PATCH.TD24 TD SCH (08:21)
[2021-05-12] MEDS: LORazepam 1MG TABLET PO PRN (11:13)
[2021-05-12] MEDS: ACETAMINOPHEN 325 MG TABLET PO PRN (11:14)
[2021-05-12 19:30] VITALS: BP 128/90
[2021-05-13] MEDS: LORazepam 1MG TABLET PO SCH ×4 (03:00→21:54)
[2021-05-13 07:31] VITALS: BP 130/91
[2021-05-13] MEDS: NICOTINE 14MG/24 HR PATCH.TD24 TD SCH (07:57)
[2021-05-13] MEDS: LORazepam 1MG TABLET PO PRN (11:58)
[2021-05-13] MEDS: SERTRALINE 100MG TABLET PO SCH (14:09)
[2021-05-13 19:35] VITALS: BP 146/94
[2021-05-13] MEDS: PRAZOSIN 2 MG CAPSULE PO SCH (20:22)
[2021-05-13] MEDS: ACETAMINOPHEN 325 MG TABLET PO PRN (20:22)
[2021-05-14] MEDS: LORazepam 1MG TABLET PO SCH ×2 (03:10→08:41)
[2021-05-14 07:55] VITALS: BP 101/71
[2021-05-14] MEDS: SERTRALINE 100MG TABLET PO SCH (08:41)
[2021-05-14] MEDS: NICOTINE 14MG/24 HR PATCH.TD24 TD SCH (08:41)
[2021-05-14] MEDS: ACETAMINOPHEN 325 MG TABLET PO PRN (11:56)
[2021-05-14] MEDS: LORazepam 1MG TABLET PO PRN (11:57)
[2021-05-14 19:43] VITALS: BP 105/68
[2021-05-14] MEDS: PRAZOSIN 2 MG CAPSULE PO SCH (21:22)
[2021-05-14] MEDS: CARBAMAZEPINE 200 MG TABLET PO SCH (21:22)
[2021-05-15 07:30] VITALS: BP 119/78
[2021-05-15] MEDS: SERTRALINE 100MG TABLET PO SCH (08:38)
[2021-05-15] MEDS: NICOTINE 14MG/24 HR PATCH.TD24 TD SCH (08:40)
[2021-05-15 19:33] VITALS: BP 127/80
[2021-05-15] MEDS: CARBAMAZEPINE 200 MG TABLET PO SCH (20:14)
[2021-05-15] MEDS: PRAZOSIN 2 MG CAPSULE PO SCH (20:14)
[2021-05-15] MEDS: LORazepam 1MG TABLET PO PRN (20:18)
[2021-05-16 07:17] VITALS: BP 109/77
[2021-05-16] MEDS: SERTRALINE 100MG TABLET PO SCH (09:28)
[2021-05-16] MEDS: NICOTINE 14MG/24 HR PATCH.TD24 TD SCH (09:29)
[2021-05-16] MEDS: LORazepam 1MG TABLET PO PRN ×2 (12:42→20:31)
[2021-05-16 19:23] VITALS: BP 131/91
[2021-05-16] MEDS: CARBAMAZEPINE 200 MG TABLET PO SCH (20:31)
[2021-05-16] MEDS: PRAZOSIN 2 MG CAPSULE PO SCH (20:31)
[2021-05-17 07:23] VITALS: BP 123/82
[2021-05-17] MEDS: SERTRALINE 100MG TABLET PO SCH (08:31)
[2021-05-17] MEDS: NICOTINE 14MG/24 HR PATCH.TD24 TD SCH (08:32)
[2021-05-17] MEDS: LORazepam 1MG TABLET PO PRN (08:43)
[2021-05-17 19:14] VITALS: BP 121/81
[2021-05-17] MEDS: PRAZOSIN 2 MG CAPSULE PO SCH (20:03)
[2021-05-17] MEDS: CARBAMAZEPINE 200 MG TABLET PO SCH (20:03)
[2021-05-18 07:23] VITALS: BP 135/83
[2021-05-18] MEDS: NICOTINE 14MG/24 HR PATCH.TD24 TD SCH (09:15)
[2021-05-18] MEDS: SERTRALINE 100MG TABLET PO SCH (09:15)
[2021-05-18] MEDS: ACETAMINOPHEN 325 MG TABLET PO PRN (12:55)
[2021-05-18 19:11] VITALS: BP 125/80
[2021-05-18] MEDS: PRAZOSIN 2 MG CAPSULE PO SCH (20:19)
[2021-05-18] MEDS: HYDROXYZINE PAMOATE 50MG CAP PO PRN (20:19)
[2021-05-18] MEDS: CARBAMAZEPINE 200 MG TABLET PO SCH (20:19)
[2021-05-19 07:11] VITALS: BP 122/84
[2021-05-19] MEDS: HYDROXYZINE PAMOATE 50MG CAP PO PRN (08:33)
[2021-05-19] MEDS: SERTRALINE 100MG TABLET PO SCH (08:33)
[2021-05-19] MEDS: NICOTINE 14MG/24 HR PATCH.TD24 TD SCH (08:35)
[2021-05-19] MEDS ORDERED: HYDR50CA2 PO (15:48)
[2021-05-19] MEDS ORDERED: PRAZ2CAP2 PO (15:48)
[2021-05-19] MEDS ORDERED: NICO-486 TD (15:48)
[2021-05-19] MEDS ORDERED: CARB200T4 PO (15:48)
[2021-05-19] MEDS ORDERED: SERT100T32 PO (15:48)
[2021-05-19 19:33] VITALS: BP 118/86
[2021-05-19] MEDS: ACETAMINOPHEN 325 MG TABLET PO PRN (20:54)
[2021-05-19] MEDS: CARBAMAZEPINE 200 MG TABLET PO SCH (20:54)
[2021-05-19] MEDS: PRAZOSIN 2 MG CAPSULE PO SCH (20:54)
[2021-05-20 07:14] VITALS: BP 110/72
[2021-05-20] MEDS: NICOTINE 14MG/24 HR PATCH.TD24 TD SCH (08:05)
[2021-05-20] MEDS: SERTRALINE 100MG TABLET PO SCH (08:07)
[2021-05-20] MEDS: HYDROXYZINE PAMOATE 50MG CAP PO PRN (09:54)
== END 2021-05-20 14:35 | disposition home or self-care (01) | DRG 885 ==
LOC: 3E 20:35
PROVIDERS: ADMIT Psychiatry & Neurology Psychosomatic Medicine; ATTEND Psychiatry & Neurology Psychosomatic Medicine
DX: F33.2 Major depressive disorder, recurrent severe without psychotic features (principal); F10.239 Alcohol dependence with withdrawal, unspecified; R45.851 Suicidal ideations; F43.10 Post-traumatic stress disorder, unspecified; Z79.899 Other long term (current) drug therapy; Z20.822 Contact with and (suspected) exposure to COVID-19; I10 Essential (primary) hypertension; F17.210 Nicotine dependence, cigarettes, uncomplicated; Z81.1 Family history of alcohol abuse and dependence; Z82.5 Family history of asthma and other chronic lower respiratory diseases; Z81.8 Family history of other mental and behavioral disorders; Y90.9 Presence of alcohol in blood, level not specified
CPT/HCPCS: 36415; 71045; 80061; 87426; 93005